=== PATIENT | male | born 1980 | race Caucasian/White ===

== ENCOUNTER 2017-12-04 17:02 | Inpatient (IN) | payer BC, OTHER ==
[~2017-12-04] VITALS: Ht 182.9 cm; Wt 81.7 kg
[2017-12-04] MEDS ORDERED: CYCL10TA6 PO (17:15)
[2017-12-04] MEDS ORDERED: HYDR-5688 PO (17:15)
[2017-12-04] MEDS ORDERED: ONDANSETRON INJ 2 MG/ML 2 ML VIAL IV STA (17:25)
[2017-12-04] MEDS ORDERED: MoRPHine SULFATE 10 MG/ML CARP/VIAL IV STA ×2 (17:25→19:11)
[2017-12-04] MEDS ORDERED: SODIUM CHLORIDE 0.9% 1000ML 1,000 ML IV ONE (17:30)
[2017-12-04] MEDS ORDERED: DEXAMETHASONE INJ 10 MG in SYRINGE 0 ML IV ONE (17:30)
[2017-12-04] MEDS ORDERED: DEXAMETHASONE **PF** INJ 10 MG/ML VIAL ONE (17:50)
--- NOTE | 2017-12-04 20:54 | History and Physical ---
History & Physical Date & Time of Service: Dec 04, 2017 at 20:54 Chief Complaint: Sciatica, Low Back & Leg Pain Primary Care Physician: Parminder Florian M.D. History of Present Illness Source: patient 37 Yo M with medical hx of DJD of Lumber spine presented to ER with acute left sided low back pain with left sided sciatica pain /numbness radiation to left foot . pt has chronic ( > 6 months) hx of persistent left lower lumber /buttock region pain with radiation to post thigh and calf . No hx of prior trauma or other initiating event MRI of lumber spine on May 2017 : showed disc herniation on left L5- S1 with clear contact with traversing S1 root , there may be a small annular tear at L4-L5 pt was seen by Orthopedics Dr Echevarria ,was recommended to have conservative management with pain control , PT/OT evaluated by Pain Management Dr Teixeira on 12/03/2017-pt had limited improvement of his symptom with trial of NSAID's , muscle relaxant and Prednisone taper schedule for Left S1 transforaminal epidural steroid injection in next week Pt developed worsening of back pain after shoveling snow on Friday12/03/17 , pain was intractable , excruciating , had difficulty in supine position left leg felt numb and weak , reports of hesitancy in urination , no saddle anesthesia pt called Dr Teixeira office for advice , was asked to come to ER for eval at [facility] ER , pt continued to have sever constant low back pain , MRI of lumber spine ordered by ER physician pt was unable to lie flat for MRI scan no report of fever or chills, no cough or congestion , no body ache denies urine or bowel incontinence Social History Smoking Status: Never Smoker Multi-Drug Resistant Organisms History of MDRO: No Allergies Uncoded Allergies: NKDA (Allergy, Unknown, NONE, 01/15/10) Home Medications Scheduled PRN Cyclobenzaprine Hcl (Flexeril), 10 MG PO TID PRN for Muscle Spasms Hydrocodone/Acetaminophen 5MG/325MG (Fithian 5MG/325MG), 1 TABLET PO Q6H PRN for Pain Review of Systems Constitutional: + weakness ENT: No hearing loss, No unusual epistaxis, No nasal symptoms, No sore throat, No tinnitus, No dental problems, No trouble swallowing, No problem reported Respiratory: No cough, No sputum, No wheezing, No shortness of breath, No dyspnea on exertion, No dyspnea at rest, No hemoptysis, No problem reported Cardiovascular: No chest pain, No orthopnea, No PND, No edema, No claudication , No palpitations, No problem reported Musculoskeletal: + muscle pain (left post thigh radiatin pain form low back and left buttock area ), + calf pain (left sided pain ), + problem reported ( severe low back pain with radiation to left leg and foot ) Neurologic: + weakness (on left leg ), + numbness/tingling (left leg ), + balance problems (unable to bear wt on left lower ext ) Physical Exam Vital Signs Date Time Temp Pulse Resp B/P (MAP) Pulse Ox O2 Delivery O2 Flow Rate FiO2 12/04/17 20:07 60 15 108/61 94 Room Air 12/04/17 17:04 36.6 105 17 133/90 99 Room Air General Appearance: + moderate distress (due to back pain , remains in rt lateral decub position , unable to lie flat or change position due to back pain and sciatica ) Head: normocephalic, atraumatic Eyes: normal inspection, sclerae normal ENT: normal ENT inspection, hearing grossly normal Neck: thyroid normal, no carotid bruits, trachea midline Respiratory/Chest: chest non-tender, lungs clear, normal breath sounds Cardiovascular: regular rate, rhythm, no edema, no JVD, no murmur, normal peripheral pulses Abdomen/GI: normal bowel sounds, non tender, soft Back: + pertinent finding (+ point tendernss on low back /left lower hip/ buttock area /left post thigh /calf to left side of foot ) Extremities/Musculoskelatal: + calf tenderness (left side calf tenderness ), + pertinent finding (+ point tendernss on low back / with radiation pain to left lower hip/buttock area /left post thigh /calf to left side of foot ) Neurologic/Psych: alert, oriented x 3, + motor weakness (rt sided normal strength , left sided diminished strength due to pain ), + sensory deficit ( left side post thigh /buttock /calf and foot area numbness ) Impression Assessment and Plan INTRACTABLE BACK PAIN : hx of DJD of Lumber spine MRI of lumber spine without contrast on 05/27/2017 : Degenerative disc disease noted at L4-L5/L5-S1 with loss of disc height and disc desiccation Left paracentral disc herniation at L5-S1 fully effaces the exiting left sided nerve roots , including the left S1 Nv root and fully effaced the left lateral recess and descending left sided nerve root pt been followed with Pain Management as out pt and was scheduled for epidural steroid injection in next week presents with worsening /debilitating pain after shoveling snow unable to tolerate lying position to have MRI done in ER Ortho Dr Echevarria consulted ordered for Iv Decadron, pain control with PRN Toradol/IV Dilaudid for severe intractable pain pain management consult ordered for MRI of Lumber spine with contrast in AM FULL CODE DVT PROPHYLAXIS: Scd and teds ambulate avoid pharmacological anticoagulation as pt may need spinal /epidural injection for pain relief DISPOSITION : expected to be discharged home when medically stable PT/OT eval requested medicine follow up with Dr Florian Level of Care Med/Surg Resuscitation Status FULL RESUSCITATION VTE Prophylaxis Given or contraindicated: Nona Stockings, SCD's Additional Copies To Parminder Florian M.D.
[2017-12-04] MEDS ORDERED: MAGNESIUM HYDROXIDE SUSP 30 ML UDC PO PRN (21:00)
[2017-12-04] MEDS ORDERED: ONDANSETRON INJ 2 MG/ML 2 ML VIAL IV PRN (21:00)
[2017-12-04] MEDS ORDERED: ALUMINUM/MAGNESIUM/SIMETH (MAALOX MAX) 30 ML UDC PO PRN (21:00)
[2017-12-04] MEDS ORDERED: ACETAMINOPHEN 325 MG TAB PO PRN (21:00)
[2017-12-04] MEDS ORDERED: ZOLPIDEM TARTRATE 5 MG TAB PO PRN (21:00)
[2017-12-04] MEDS ORDERED: POLYETHYLENE (MIRALAX) 17 GM PACK PO PRN (21:00)
[2017-12-04] MEDS ORDERED: HYDROmorphone INJ 1 MG/ML SYR IV PRN (21:00)
[2017-12-04 21:12] LABS: HEMATOCRIT 43.1 % (42-52); MEAN CELL VOLUME 84.2 fL (80-100); MEAN CORPUSCULAR HEMOGLOBIN 29.3 pg (25-34); MEAN CORPUSCULAR HGB CONC 34.8 g/dl (32-36); MEAN PLATELET VOLUME 10.5 fL (7.4-10.4); PLATELET COUNT 257 K/uL (130-400); RED CELL DISTRIBUTION WIDTH SD 36.7 fL (36.4-46.3); WHITE BLOOD COUNT 8.18 K/uL (4.8-10.8)
[2017-12-04 21:18] LABS: CREATININE 1.05 mg/dl (0.60-1.40)
[2017-12-04 21:19] LABS: POTASSIUM 3.5 mmol/L (3.5-5.1)
--- NOTE | 2017-12-04 21:27 | EMERGENCY ROOM VISIT NOTE ---
ED Visit Note First contact with patient: 17:09 Chief Complaint: Lower back pain. History of Present Illness: Mr. Knight is a 37-year-old white male who ambulates into the ED complaining of lumbar back pain. Historically patient reports she has a herniated disc at the L5-S1 area and has a history of sciatica. He was seen by Dr. Echevarria in May 2017 and it was felt that surgery was not required. He does report he did a course of physical therapy and was feeling better. Patient reports over the last 3 weeks he has noted gradually increasing pain in the lumbar spine in the area of L4 through S1. He reports with all the shoveling he did over the last week his pain has dramatically increased in intensity. Currently he describes his pain as a sharp stabbing sensation. He rates his discomfort 9/10. The pain is radiating down the left leg to the foot. His pain worsens with all movement of the back, lying on his back, sitting, ambulating. He reports he has been using [id number] medications without relief of his discomfort. He does find it easier to kneel on the floor to control his pain. He has contacted pain management who reported they could possibly do an injection in his lumbar spine in approximately 1-1/2 weeks. Associated with his worsening pain he reports he has noticed that he has a difficulty starting his urinary stream, he is having numbness in the left lower leg, weakness in the left lower leg. Additionally he notes he has been not eating or drinking because he does not want to stand to urinate and he does not want to sit to defecate. He denies fevers, chills, sweats, skin eruptions, skin color changes, recent direct or repetitive trauma, abdominal pain, nausea, vomiting, diarrhea, constipation, rectal bleeding, black/tarry stools, urinary burning, increased urinary frequency, bowel and bladder dysfunction, genital paresthesias. Review of Systems: As noted above in history of present illness. All body systems were reviewed and found to be negative as noted above. Past Medical History: As previously noted. Current Medications: Patient denies. Allergies to Medications: Patient denies. Social History: Patient is currently employed; he feels safe in his home environment; he denies tobacco and alcohol use. Physical Examination: Vital Signs: Date Time Temp Pulse Resp B/P (MAP) Pulse Ox O2 Delivery O2 Flow Rate FiO2 2/8/18 20:07 60 15 108/61 94 Room Air 12/04/17 17:04 36.6 105 17 133/90 99 Room Air GENERAL: 37-year-old male in moderate distress due to pain, nontoxic-appearing, afebrile and hemodynamically stable. On my initial evaluation I did walk into the patient's room and he was kneeling at the bedside. NEUROLOGICAL: Awake, alert and oriented to person, place and time. Answering questions appropriately and following commands. Good hand eye coordination. SKIN: Warm, dry and pink. No soft tissue eruptions or trauma noted. HEENT: Atraumatic and normocephalic. BACK: No tenderness over the bony cervical and thoracic spine. Mild tenderness over the lower lumbar spine without bony deformity, bony crepitus, swelling or ecchymosis. Positive straight leg raise on the left. No CVA tenderness. THORAX: Lungs sounds are clear to auscultation and equal bilaterally with symmetrical chest wall. ABDOMEN: Flat, soft and nontender. Positive bowel sounds in all quadrants. No guarding, rigidity or organomegaly. LOWER EXTREMITIES: No tenderness over the hips, thighs, knees, lower leg or ankle. +2 right sided patellar and Achilles deep tendon reflexes and slightly decreased on the left. Difficulty to assess muscle strength due to pain but with knee flexion and extension and ankle plantar flexion and dorsiflexion his strength was decreased on the left. He was able to distinguish light sensations to all dermatomes of the leg but reported the left lower extremity light sensation test felt different and distance. Distal pulses are intact and equal bilaterally. Capillary refill is brisk and intact bilaterally. No calf tenderness or cords. ED Course: Patient is assessed as noted above. Patient's medication list was reviewed. An IV lock was initiated and patient was hydrated with normal saline and received a total of 12 mg of morphine and 10 mg of Decadron IV. Patient was taken to the MRI suite and was not able to tolerate lying flat for his MRI and return. Patient's case was reviewed with Dr. Andrews; we agreed on diagnostic approach, treatment, disposition and plan. Patient's case was consulted with Dr. Echevarria; he felt it was appropriate to have the patient be admitted for observation by the hospitalist for pain control and also recommended additional steroids for possible MRI and his evaluation tomorrow. Patient's case was consulted with case management [facility]/admission for intractable back pain and pain control. Patient was educated about today's findings. Clinical Impression: Irretractable lumbar back pain. Left-sided radicular symptoms. Disposition and Plan: Patient be brought into the hospital for observation/ [facility]; please see their notes and orders for final disposition and plan.
[2017-12-04] MEDS ORDERED: IV FLUIDS COMPLETED PRN (21:30)
[2017-12-04 21:40] VITALS: BP 111/70; PULSE 54; TEMP 36.8; Ht 182.9 cm; Wt 81.7 kg
[2017-12-04] MEDS: HYDROmorphone INJ 2 MG/ML SYR/VIAL IV PRN (22:08)
[2017-12-04 23:00] VITALS: BP 106/65; PULSE 59; TEMP 36.8; O2SAT 90
[2017-12-04] MEDS: CYCLOBENZAPRINE HCL 5 MG TAB PO SCH (23:39)
[2017-12-04] MEDS: LIDODERM (LIDOCAINE) PATCH 5% TD SCH (23:39)
[2017-12-04] MEDS: DOCUSATE SODIUM 100 MG CAP PO SCH (23:39)
[2017-12-04] MEDS: DEXAMETHASONE INJ 10 MG in SYRINGE 0 ML IV SCH (23:46)
[2017-12-04] MEDS: KETOROLAC TROMETHAMINE 15 MG/ML VIAL IV PRN (23:46)
[2017-12-05] MEDS: HYDROmorphone INJ 2 MG/ML SYR/VIAL IV PRN ×2 (05:54→12:45)
[2017-12-05 07:32] VITALS: BP 101/56; PULSE 60; TEMP 36.7; O2SAT 96
[2017-12-05] MEDS: DOCUSATE SODIUM 100 MG CAP PO SCH ×2 (07:55→20:20)
[2017-12-05] MEDS: DEXAMETHASONE INJ 10 MG in SYRINGE 0 ML IV SCH ×2 (07:59→16:43)
[2017-12-05] MEDS: CYCLOBENZAPRINE HCL 5 MG TAB PO SCH ×3 (07:59→20:20)
[2017-12-05] MEDS: KETOROLAC TROMETHAMINE 15 MG/ML VIAL IV PRN ×2 (08:00→16:45)
[2017-12-05] MEDS: LIDODERM (LIDOCAINE) PATCH 5% TD SCH (08:00)
[2017-12-05 09:20] LABS: HEMOGLOBIN 14.1 g/dL (14.0-18.0); MEAN CELL VOLUME 84.9 fL (80-100); MEAN CORPUSCULAR HEMOGLOBIN 29.2 pg (25-34); MEAN CORPUSCULAR HGB CONC 34.4 g/dl (32-36); MEAN PLATELET VOLUME 10.5 fL (7.4-10.4); PLATELET COUNT 231 K/uL (130-400); WHITE BLOOD COUNT 8.67 K/uL (4.8-10.8)
[2017-12-05 09:26] LABS: INR 1.1 (0.9-1.1)
[2017-12-05 09:43] LABS: CALCIUM 9.1 mg/dl (8.5-10.1); CREATININE 0.91 mg/dl (0.60-1.40); POTASSIUM 4.4 mmol/L (3.5-5.1)
--- NOTE | 2017-12-05 13:43 | DIAGNOSTIC IMAGING REPORT ---
LUMBAR SPINE W/O CONTRAST CLINICAL HISTORY: 37 years-old Male with back pain /Radiculopathy /DJD at L4-L5/5-S1 . Acute severe low back pain with radicular symptoms. COMPARISON: None. TECHNIQUE: Multiplanar, multi sequence MRI of the lumbar spine was performed without intravenous contrast. FINDINGS: No focal bone marrow edema, acute fracture or subluxation. Paraspinal structures, intra-abdominal and intrapelvic structures appear unremarkable. No aortic aneurysm or adenopathy identified. Conus medullaris terminates at the L1 level. Signal within the imaged thoracic spinal cord appears unremarkable. Small 1 x 1 mm lipoma of the filum terminale (image 13 series 7). T12-L1: No central canal or neural foraminal stenosis. L1-L2: No central canal or neural foraminal stenosis. L2-L3: No central canal or neural foraminal stenosis. L3-L4: No central canal or neural foraminal stenosis. L4-L5: Mild intervertebral disc space narrowing with disc desiccation and small annular disc bulge. Additionally, there is a small posterior annular fissure with broad-based central disc protrusion which flattens the ventral thecal sac. No significant central canal or foraminal narrowing. L5-S1: Mild intervertebral disc space narrowing with small posterior disc bulge and left paracentral disc extrusion which extends posteriorly 10 mm. Additionally, there is a 7 x 10 mm sequestered disc fragment posteriorly to the extrusion as seen on image 7 series 3, not as well delineated on the axial images. The sequestered disc fragment obliterates the central canal causing severe central canal narrowing with displacement of the cauda equina to the right. Additionally, there is severe left lateral recess, mild to moderate left and mild right foraminal narrowing. This likely abuts and displaces the left S1 nerve root. IMPRESSION: 1. At L5-S1 mild intervertebral disc space narrowing with small posterior disc bulge and left paracentral disc extrusion is present in addition to an adjacent 10 mm sequestered disc fragment which causes severe central canal narrowing with rightward displacement of the cauda equina resulting in severe left lateral recess, mild to moderate left and mild right foraminal narrowing. 2. Mild intervertebral disc space narrowing with disc desiccation and small annular disc bulge at L4-L5 with small posterior annular fissure and broad-based central disc protrusion. No associated significant central canal or foraminal narrowing at this interspace. 3. 1 mm lipoma of the filum terminalis. The above report was generated using voice recognition software. It may contain grammatical, syntax or spelling errors. Electronically signed by: Bharat Kumar M.D. 12/05/2017 1:41 PM Dictated Date/Time: 12/05/2017 1:23 PM
--- NOTE | 2017-12-05 13:47 | ORTHOPEDIC CONSULTATION ---
DATE OF CONSULTATION: 12/05/2017 CHIEF COMPLAINT: Back and lower extremity difficulty with a working diagnosis of a disk herniation at L5-S1 from 3 months ago. Yifan was doing fairly well, increasing activity, was doing pretty well with conservative management. He was shoveling snow a few days ago. The pain begun excruciating. He came to the Emergency Room for evaluation and treatment with reported numbness and weakness with some hesitancy in urine. PAST MEDICAL HISTORY: Benign. SOCIAL HISTORY: Nonsmoker. Non-ETOH user. ALLERGIES: None. MEDICATIONS: Flexeril and hydrocodone. REVIEW OF SYSTEMS: Denies any blurred vision, double vision, tinnitus or vertigo. Denies shortness of breath or chest pain. Admits to back pain, buttock pain, lower extremity difficulty, and calf difficulty. Admits to some numbness and tingling, weakness and balance issues. PHYSICAL EXAMINATION: GENERAL: He is an alert and oriented gentleman. Communicates perfectly. VITAL SIGNS: Blood pressure is controlled at 130/90, respiratory rate 15, and pulse 60. HEENT: Normal. CHEST: Nontender. LUNGS: Clear. ABDOMEN: Soft and nontender. CARDIAC: Normal rate rhythm. BACK: His back has some point tenderness, pain with percussion and left calf pain. He has positive pain with straight leg raising on the left hand side and slightly on the right hand side. Slightly decreased strength on the left and slightly decreased sensory deficits. Old MRI scan reviewed, demonstrating disk herniation at L5-S1. IMPRESSION: Disk herniation at L5-S1 lumbar spine with mild neurological issues. DISPOSITION: He is being admitted to the medical service. I am thankful. He is a full code status. We will try to manage him medically with assortment of medications, steroids, opioids and try to get this under control. There is an outside chance for surgical intervention. He would like to avoid surgical intervention if at all possible.
[2017-12-05] MEDS: GABAPENTIN 300 MG CAP PO SCH ×2 (14:07→20:21)
--- NOTE | 2017-12-05 14:39 | Progress Note ---
Internal Med Progress Note Date of Service: Dec 05, 2017. Provider Documentation: SUBJECTIVE: The patient was seen and examined Has Low Back pain with left leg Radiculopathy-worse symptoms since Friday OBJECTIVE: Vital Signs-as noted below Exam: General-Moderate distress at rest Eyes-normal ENT-normal Neck-supple Lungs-clear to auscultate bilaterally Heart-Regular,no murmur Abdomen-Benign,no masses,bowel sound present Extremities-No edema Neuro-AAOx3 Lab data as noted below. ASSESSMENT & PLAN: INTRACTABLE BACK PAIN : H/O of DJD of Lumber spine Pt been followed with Pain Management as out pt and was scheduled for epidural steroid injection in next week Presents with worsening /debilitating pain after shoveling snow Has been Iv Decadron, pain control with PRN Toradol/IV Dilaudid for severe intractable pain Pain management consult Clinically not any better MRI of lumber spine without contrast on 05/27/2017 : Degenerative disc disease noted at L4-L5/L5-S1 with loss of disc height and disc desiccation Left paracentral disc herniation at L5-S1 fully effaces the exiting left sided nerve roots , including the left S1 Nv root and fully effaced the left lateral recess and descending left sided nerve root MRI on 12/05/17::IMPRESSION: 1. At L5-S1 mild intervertebral disc space narrowing with small posterior disc bulge and left paracentral disc extrusion is present in addition to an adjacent 10 mm sequestered disc fragment which causes severe central canal narrowing with rightward displacement of the cauda equina resulting in severe left lateral recess, mild to moderate left and mild right foraminal narrowing. 2. Mild intervertebral disc space narrowing with disc desiccation and small annular disc bulge at L4-L5 with small posterior annular fissure and broad-based central disc protrusion. No associated significant central canal or foraminal narrowing at this interspace. 3. 1 mm lipoma of the filum terminalis. Appreciate Ortho evaluation Further management as per Ortho DVT PROPHYLAXIS: Scd and teds ambulate avoid pharmacological anticoagulation as pt may need spinal /epidural injection for pain relief FULL CODE DISPOSITION : expected to be discharged home when medically stable PT/OT eval requested medicine follow up with Dr Florian [] Vital Signs: Date Time Temp Pulse Resp B/P (MAP) Pulse Ox O2 Delivery O2 Flow Rate FiO2 12/05/17 08:00 Room Air 12/05/17 07:32 36.7 60 16 101/56 (71) 96 Room Air 12/04/17 23:40 Room Air 12/04/17 23:00 36.8 59 14 106/65 (79) 90 Room Air 12/04/17 21:40 36.8 54 16 111/70 Room Air 12/04/17 21:31 82 16 97/58 97 12/04/17 20:07 60 15 108/61 94 Room Air 12/04/17 17:04 36.6 105 17 133/90 99 Room Air Lab Results: Results Past 24 Hours Test 12/04/17 17:30 12/05/17 08:25 Range/Units White Blood Count 8.18 8.67 4.8-10.8 K/uL Red Blood Count 5.12 4.83 4.7-6.1 M/uL Hemoglobin 15.0 14.1 14.0-18.0 g/dL Hematocrit 43.1 41.0 42-52 % Mean Corpuscular Volume 84.2 84.9 80-100 fL Mean Corpuscular Hemoglobin 29.3 29.2 25-34 pg Mean Corpuscular Hemoglobin Concent 34.8 34.4 32-36 g/dl RDW Standard Deviation 36.7 37.0 36.4-46.3 fL RDW Coefficient of Variation 12.0 12.0 11.5-14.5 % Platelet Count 257 231 130-400 K/uL Mean Platelet Volume 10.5 10.5 7.4-10.4 fL Sodium Level 139 137 136-145 mmol/L Potassium Level 3.5 4.4 3.5-5.1 mmol/L Chloride Level 106 104 98-107 mmol/L Carbon Dioxide Level 30 27 21-32 mmol/L Anion Gap 3.0 6.0 3-11 mmol/L Blood Urea Nitrogen 13 16 7-18 mg/dl Creatinine 1.05 0.91 0.60-1.40 mg/dl Est Creatinine Clear Calc Drug Dose 107.8 124.4 ml/min Estimated GFR () 106.1 126.1 Estimated GFR (Non- 91.5 108.8 BUN/Creatinine Ratio 11.9 18.0 10-20 Random Glucose 105 143 70-99 mg/dl Calcium Level 9.0 9.1 8.5-10.1 mg/dl Erythrocyte Sedimentation Rate 2 0-14 mm/hr Prothrombin Time 11.3 9.0-12.0 SECONDS Prothromb Time International Ratio 1.1 0.9-1.1
[2017-12-05 15:13] VITALS: BP 110/63; PULSE 60; TEMP 36.8; O2SAT 95
--- NOTE | 2017-12-05 19:38 | HISTORY & PHYSICAL EXAMINATION ---
DATE OF ADMISSION: 12/04/2017 WORKING DIAGNOSIS: Disc herniation, lumbar spine L5-S1. HISTORY OF PRESENT ILLNESS: Yifan is a delightful gentleman. He is only 37 years of age. He was admitted yesterday with back and lower extremity difficulty. He was rescanned today. He has a large disk herniation at L5-S1 slightly on the left hand side. He has no fever, sweats, chills. He has hesitancy of his urine. He has been slightly constipated but he has no incontinence of bowel or bladder function. It is mostly in his lower extremity and back radiating into left hand side. He has 5/5 motor strength to dorsiflexion, plantarflexion, slight loss of sensation, pain with straight leg raising on the left contralateral also on the right. Images demonstrated a very large disc herniation at L5-S1 lumbar spine. IMPRESSION: Includes that of a large disc herniation at L5-S1 lumbar spine, otherwise healthy 37-year-old gentleman. DISPOSITION: I think it is appropriate that he stays approximately 24-48 hours. I think it is little unsafe for him to go home. I would like to have his pain little more under control and improvement of his sensation. He may have a chance of going home on Friday. After saying this, there is a chance of surgical intervention if he does not turnaround still has difficulty, then surgery would be warranted, a single level discectomy L5-S1. He has been admitted to the medical service and the medical team will be in charge of his overall disposition but once again I recommend him staying tomorrow which will be Friday the and even most of the day on the . Dr. Marc Tang will be covering in my absence and I will be back into town Friday evening approximately 6:00 p.m. If there is any concerning issues in the next 48 hours, please give me a call [phone].
[2017-12-05 23:15] VITALS: BP 114/67; PULSE 68; TEMP 36.8; O2SAT 94
[2017-12-06] MEDS: DEXAMETHASONE INJ 10 MG in SYRINGE 0 ML IV SCH ×4 (00:25→23:42)
[2017-12-06] MEDS: KETOROLAC TROMETHAMINE 15 MG/ML VIAL IV PRN ×4 (04:09→22:43)
[2017-12-06 07:20] VITALS: BP 97/58; PULSE 64; TEMP 36.9; O2SAT 97
[2017-12-06] MEDS: CYCLOBENZAPRINE HCL 5 MG TAB PO SCH ×3 (08:54→21:18)
[2017-12-06] MEDS: GABAPENTIN 300 MG CAP PO SCH ×3 (08:54→21:45)
[2017-12-06] MEDS: DOCUSATE SODIUM 100 MG CAP PO SCH ×2 (08:54→21:44)
[2017-12-06] MEDS: LIDODERM (LIDOCAINE) PATCH 5% TD SCH (08:55)
--- NOTE | 2017-12-06 10:25 | PROGRESS NOTE ---
DATE: 12/06/2017 CHIEF COMPLAINT: L5-S1 disc herniation. PROGRESS: Overall, Yifan is doing better. He still has some numbness in his right leg. His pain is much better and he has been up and ambulating, but he is not symptom free at this point. PHYSICAL EXAMINATION: He has active dorsiflexion and plantarflexion of his ankles and slightly decreased strength on the left side. He does have some numbness extending in the left foot and the left calf. Overall he has been up and ambulating. IMPRESSION: L5-S1 disc herniation. PLAN: We will continue to try to treat this conservatively. He is currently on steroids and opioid and his pain is much better controlled. He is orthopedically stable for discharge to home when medically ready.
--- NOTE | 2017-12-06 13:43 | Progress Note ---
Internal Med Progress Note Date of Service: Dec 06, 2017. Provider Documentation: SUBJECTIVE: The patient was seen and examined Has Low Back pain with left leg Radiculopathy-worse symptoms since Friday Pain is reasonably controlled Ambulating with some difficulty OBJECTIVE: Vital Signs-as noted below Exam: General-Moderate distress at rest Eyes-normal ENT-normal Neck-supple Lungs-clear to auscultate bilaterally Heart-Regular,no murmur Abdomen-Benign,no masses,bowel sound present Extremities-No edema Neuro-AAOx3 no sensory and or motor deficit in left leg Straight leg raising produces radiating pain along the leg Lab data as noted below. ASSESSMENT & PLAN: INTRACTABLE BACK PAIN : HNP L5/S1 H/O of DJD of Lumber spine Pt been followed with Pain Management as out pt and was scheduled for epidural steroid injection in next week Presents with worsening /debilitating pain after shoveling snow Has been Iv Decadron, pain control with PRN Toradol/IV Dilaudid for severe intractable pain Pain management consult Clinically not any better MRI of lumber spine without contrast on 05/27/2017 : Degenerative disc disease noted at L4-L5/L5-S1 with loss of disc height and disc desiccation Left paracentral disc herniation at L5-S1 fully effaces the exiting left sided nerve roots , including the left S1 Nv root and fully effaced the left lateral recess and descending left sided nerve root MRI on 12/05/17::IMPRESSION: 1. At L5-S1 mild intervertebral disc space narrowing with small posterior disc bulge and left paracentral disc extrusion is present in addition to an adjacent 10 mm sequestered disc fragment which causes severe central canal narrowing with rightward displacement of the cauda equina resulting in severe left lateral recess, mild to moderate left and mild right foraminal narrowing. 2. Mild intervertebral disc space narrowing with disc desiccation and small annular disc bulge at L4-L5 with small posterior annular fissure and broad-based central disc protrusion. No associated significant central canal or foraminal narrowing at this interspace. 3. 1 mm lipoma of the filum terminalis. Appreciate Ortho evaluation Further management as per Ortho Medical management for now Patient wants a second opinion Will talk to Dr Joseph if condition gets worse otherwise discharge home tomorrow DVT PROPHYLAXIS: Scd and teds ambulate avoid pharmacological anticoagulation as pt may need spinal /epidural injection for pain relief FULL CODE DISPOSITION : expected to be discharged home when medically stable PT/OT eval requested medicine follow up with Dr Florian [] Vital Signs: Date Time Temp Pulse Resp B/P (MAP) Pulse Ox O2 Delivery O2 Flow Rate FiO2 12/06/17 08:52 Room Air 12/06/17 07:20 36.9 64 16 97/58 (71) 97 Room Air 12/06/17 00:20 Room Air 12/05/17 23:15 36.8 68 16 114/67 (83) 94 Room Air 12/05/17 16:45 Room Air 12/05/17 15:13 36.8 60 16 110/63 (79) 95 Room Air 60
[2017-12-06 15:19] VITALS: BP 125/64; PULSE 91; TEMP 37; O2SAT 93
[2017-12-06 22:51] VITALS: BP 96/53; PULSE 60; TEMP 36.8; O2SAT 93
[2017-12-07] MEDS: KETOROLAC TROMETHAMINE 15 MG/ML VIAL IV PRN ×3 (05:49→19:42)
[2017-12-07 07:16] VITALS: BP 124/70; PULSE 65; TEMP 36.8; O2SAT 97
[2017-12-07] MEDS: DEXAMETHASONE INJ 10 MG in SYRINGE 0 ML IV SCH ×2 (07:35→15:44)
[2017-12-07] MEDS: DOCUSATE SODIUM 100 MG CAP PO SCH ×2 (07:35→21:09)
[2017-12-07] MEDS: CYCLOBENZAPRINE HCL 5 MG TAB PO SCH ×3 (07:36→21:09)
[2017-12-07] MEDS: GABAPENTIN 300 MG CAP PO SCH ×3 (07:36→21:09)
[2017-12-07] MEDS: LIDODERM (LIDOCAINE) PATCH 5% TD SCH (07:36)
[2017-12-07] MEDS ORDERED: MAGNESIUM HYDROXIDE SUSP 30 ML UDC PO ONE (08:15)
[2017-12-07] MEDS: POLYETHYLENE (MIRALAX) 17 GM PACK PO SCH ×3 (10:19→21:09)
--- NOTE | 2017-12-07 10:33 | Progress Note ---
Internal Med Progress Note Date of Service: Dec 07, 2017. Provider Documentation: SUBJECTIVE: The patient was seen and examined Has Low Back pain with left leg Radiculopathy-worse symptoms since Friday Pain is reasonably controlled at rest Severe radiculopathy on ambulation Denies any Urine and or bowel issue but constipated OBJECTIVE: Vital Signs-as noted below Exam: General-Moderate distress at rest Eyes-normal ENT-normal Neck-supple Lungs-clear to auscultate bilaterally Heart-Regular,no murmur Abdomen-Benign,no masses,bowel sound present Extremities-No edema Neuro-AAOx3 no sensory and or motor deficit in left leg Straight leg raising produces radiating pain along the leg Lab data as noted below. ASSESSMENT & PLAN: INTRACTABLE BACK PAIN : HNP L5/S1 H/O of DJD of Lumber spine Pt been followed with Pain Management as out pt and was scheduled for epidural steroid injection in next week Presents with worsening /debilitating pain after shoveling snow Has been Iv Decadron, pain control with PRN Toradol/IV Dilaudid for severe intractable pain Pain management consult Clinically not any better MRI of lumber spine without contrast on 05/27/2017 : Degenerative disc disease noted at L4-L5/L5-S1 with loss of disc height and disc desiccation Left paracentral disc herniation at L5-S1 fully effaces the exiting left sided nerve roots , including the left S1 Nv root and fully effaced the left lateral recess and descending left sided nerve root MRI on 12/05/17::IMPRESSION: 1. At L5-S1 mild intervertebral disc space narrowing with small posterior disc bulge and left paracentral disc extrusion is present in addition to an adjacent 10 mm sequestered disc fragment which causes severe central canal narrowing with rightward displacement of the cauda equina resulting in severe left lateral recess, mild to moderate left and mild right foraminal narrowing. 2. Mild intervertebral disc space narrowing with disc desiccation and small annular disc bulge at L4-L5 with small posterior annular fissure and broad-based central disc protrusion. No associated significant central canal or foraminal narrowing at this interspace. 3. 1 mm lipoma of the filum terminalis. Appreciate Ortho evaluation Further management as per Ortho Medical management for now Patient wants a second opinion Pain is worse on ambulation with Radiculopathy Discussed with Dr Echevarria-no problem getting 2nd Opinion Consult placed for Dr Joseph DVT PROPHYLAXIS: Scd and teds ambulate avoid pharmacological anticoagulation as pt may need spinal /epidural injection for pain relief FULL CODE DISPOSITION : expected to be discharged home when medically stable PT/OT eval requested medicine follow up with Dr Florian [] Vital Signs: Date Time Temp Pulse Resp B/P (MAP) Pulse Ox O2 Delivery O2 Flow Rate FiO2 12/07/17 07:16 36.8 65 16 124/70 (88) 97 Room Air 12/06/17 23:40 Room Air 12/06/17 22:51 36.8 60 17 96/53 (67) 93 Room Air 12/06/17 15:30 Room Air 12/06/17 15:19 37.0 91 18 125/64 (84) 93 Room Air
[2017-12-07] MEDS ORDERED: POLYETHYLENE (MIRALAX) 17 GM PACK ONE (14:00)
[2017-12-07 15:11] VITALS: BP 115/68; PULSE 76; TEMP 36.9; O2SAT 96
--- NOTE | 2017-12-07 19:12 | ORTHOPEDICS PROGRESS NOTE ---
DATE: 12/07/2017 SUBJECTIVE: His pain does seem controlled. He still has some numbness and tingling. He has no significant weakness. He is able to walk a little bit in the hallway. If he stands on his feet for a significant amount of time or even a few minutes he has fairly riveting lower extremity difficulty and must get off his feet. This causes him some significant pain and some increased numbness. He does not have bowel and bladder complaints and he is resting comfortably in his room. He denies fever, sweats, chills, any other worrisome red flags. OBJECTIVE: His abdomen is soft, nontender, no referred pain. He has adequate motor strength to dorsiflexion, plantar flexion. His plantar flexion was intact. His reflex left Achilles was decreased compared to the right. It was not completely absent but significantly decreased. He had good great toe strength. He had no upper motor neuron issues. He has pain with straight leg raising on the left and contralateral straight leg raising pain. He has no noticeable muscle atrophy. He has loss of sensation in the S1 nerve root. IMAGES: Demonstrate a very large disc herniation at L5-S1 with nerve root compression. It is quite significant. I have seen larger disc herniation, but this would be certainly in the top 10% for this range. PLAN AND DISPOSITION: This is a surgical problem. I think in any hands, any bodies discretion, surgery is probably the best answer. My opinion on this comes down to surgery is probably a better option than living with this situation and risking any permanent neurological deficit. I have a very busy schedule tomorrow which is Friday the . Hopefully, we get him home, keep him on some steroids and some medication and schedule his surgery for later on this week or early next week. I would like to get to his surgical procedure within the next 4-8 days.
[2017-12-07 23:09] VITALS: BP 140/78; PULSE 51; TEMP 36.7; O2SAT 95
[2017-12-08] MEDS: DEXAMETHASONE INJ 10 MG in SYRINGE 0 ML IV SCH ×4 (00:12→23:43)
[2017-12-08] MEDS: POLYETHYLENE (MIRALAX) 17 GM PACK PO SCH ×4 (00:40→20:56)
[2017-12-08] MEDS: KETOROLAC TROMETHAMINE 15 MG/ML VIAL IV PRN ×3 (03:08→23:43)
[2017-12-08 07:15] VITALS: BP 134/79; PULSE 51; TEMP 36.8; O2SAT 95
[2017-12-08 08:00] VITALS: O2SAT 95
[2017-12-08] MEDS: LIDODERM (LIDOCAINE) PATCH 5% TD SCH (08:40)
[2017-12-08] MEDS: GABAPENTIN 300 MG CAP PO SCH ×3 (08:40→20:57)
[2017-12-08] MEDS: DOCUSATE SODIUM 100 MG CAP PO SCH ×2 (08:40→20:57)
[2017-12-08] MEDS: CYCLOBENZAPRINE HCL 5 MG TAB PO SCH ×3 (08:40→20:57)
[2017-12-08 15:35] VITALS: BP 130/78; PULSE 67; TEMP 36.8; O2SAT 94
--- NOTE | 2017-12-08 16:04 | Progress Note ---
Internal Med Progress Note Date of Service: Dec 08, 2017. Provider Documentation: SUBJECTIVE: The patient was seen and examined Has Low Back pain with left leg Radiculopathy-worse symptoms since Friday Severe radiculopathy on ambulation Denies any Urine and or bowel issue but constipated Still has the pain OBJECTIVE: Vital Signs-as noted below Exam: General-Moderate distress at rest Eyes-normal ENT-normal Neck-supple Lungs-clear to auscultate bilaterally Heart-Regular,no murmur Abdomen-Benign,no masses,bowel sound present Extremities-No edema Neuro-AAOx3 no sensory and or motor deficit in left leg Straight leg raising produces radiating pain along the leg Impaired sensation along the lateral aspect of the left foot Lab data as noted below. ASSESSMENT & PLAN: INTRACTABLE BACK PAIN : HNP L5/S1 H/O of DJD of Lumber spine Pt been followed with Pain Management as out pt and was scheduled for epidural steroid injection in next week Presents with worsening /debilitating pain after shoveling snow Has been Iv Decadron, pain control with PRN Toradol/IV Dilaudid for severe intractable pain Pain management consult Clinically not any better MRI of lumber spine without contrast on 05/27/2017 : Degenerative disc disease noted at L4-L5/L5-S1 with loss of disc height and disc desiccation Left paracentral disc herniation at L5-S1 fully effaces the exiting left sided nerve roots , including the left S1 Nv root and fully effaced the left lateral recess and descending left sided nerve root MRI on 12/05/17::IMPRESSION: 1. At L5-S1 mild intervertebral disc space narrowing with small posterior disc bulge and left paracentral disc extrusion is present in addition to an adjacent 10 mm sequestered disc fragment which causes severe central canal narrowing with rightward displacement of the cauda equina resulting in severe left lateral recess, mild to moderate left and mild right foraminal narrowing. 2. Mild intervertebral disc space narrowing with disc desiccation and small annular disc bulge at L4-L5 with small posterior annular fissure and broad-based central disc protrusion. No associated significant central canal or foraminal narrowing at this interspace. 3. 1 mm lipoma of the filum terminalis. Appreciate Ortho evaluation Further management as per Ortho Wanted to have Second Opinion-Dr Joseph is away for the rest of the week Discussed with the Patient and Dr Sefter again The patient wanted to go for surgery on by Dr Echevarria DVT PROPHYLAXIS: Scd and teds ambulate avoid pharmacological anticoagulation as pt may need spinal /epidural injection for pain relief FULL CODE DISPOSITION : expected to be discharged home when medically stable PT/OT eval requested medicine follow up with Dr Florian [] Vital Signs: Date Time Temp Pulse Resp B/P (MAP) Pulse Ox O2 Delivery O2 Flow Rate FiO2 12/08/17 15:35 36.8 67 18 130/78 (95) 94 Room Air 12/08/17 08:00 95 Room Air 12/08/17 07:15 36.8 51 16 134/79 (97) 95 Room Air 12/08/17 00:00 Room Air 12/07/17 23:09 36.7 51 16 140/78 (98) 95 Room Air
--- NOTE | 2017-12-08 17:26 | ORTHOPEDICS PROGRESS NOTE ---
DATE: 12/08/2017 SUBJECTIVE: Moderate complaints of pain, numbness, tingling, some associated weakness, worsening clinical story and scenario when he is up and ambulatory. OBJECTIVE: 5/5 strength, loss of Achilles reflex on the left. Slight loss of sensation. Pain with straight leg raising left with straight leg raising pain, right. IMAGING DATA: Demonstrates a large disk herniation at L5-S1. PLAN: We are rescheduling him for surgery, hope get to him in the next 2-3 days. He is too critical to send home. I have explained to him that situation. We will try to manage him medically over next 24-48 hours. If he makes a miraculous recovery, the cancellation of surgery is easy. The surgical procedure that will offer him is a lumbar spine laminotomy and discectomy at L5-S1 on the left.
[2017-12-08 23:04] VITALS: BP 117/69; PULSE 49; TEMP 36.5; O2SAT 96
[2017-12-08 23:45] VITALS: PULSE 56
[2017-12-09] MEDS: POLYETHYLENE (MIRALAX) 17 GM PACK PO SCH ×4 (02:38→20:10)
[2017-12-09 07:32] VITALS: BP 116/71; PULSE 49; TEMP 36.7; O2SAT 97
[2017-12-09] MEDS: DEXAMETHASONE INJ 10 MG in SYRINGE 0 ML IV SCH ×3 (08:31→23:52)
[2017-12-09] MEDS: CYCLOBENZAPRINE HCL 5 MG TAB PO SCH ×3 (08:32→20:12)
[2017-12-09] MEDS: DOCUSATE SODIUM 100 MG CAP PO SCH ×2 (08:32→20:12)
[2017-12-09] MEDS: GABAPENTIN 300 MG CAP PO SCH ×3 (08:32→20:12)
[2017-12-09] MEDS: LIDODERM (LIDOCAINE) PATCH 5% TD SCH (08:41)
[2017-12-09 15:18] VITALS: BP 135/73; PULSE 81; TEMP 36.9; O2SAT 96
--- NOTE | 2017-12-09 15:46 | Progress Note ---
Internal Med Progress Note Date of Service: Dec 09, 2017. Provider Documentation: SUBJECTIVE: The patient was seen and examined Has Low Back pain with left leg Radiculopathy-worse symptoms since Friday Severe radiculopathy on ambulation Denies any Urine and or bowel issue but constipated Still has the pain with radiation and numbness on lateral and under left foot OBJECTIVE: Vital Signs-as noted below Exam: General-Moderate distress at rest Eyes-normal ENT-normal Neck-supple Lungs-clear to auscultate bilaterally Heart-Regular,no murmur Abdomen-Benign,no masses,bowel sound present Extremities-No edema Neuro-AAOx3 no sensory and or motor deficit in left leg Straight leg raising produces radiating pain along the leg Impaired sensation along the lateral aspect of the left foot Lab data as noted below. ASSESSMENT & PLAN: INTRACTABLE BACK PAIN : HNP L5/S1 H/O of DJD of Lumber spine Pt been followed with Pain Management as out pt and was scheduled for epidural steroid injection in next week Presents with worsening /debilitating pain after shoveling snow Has been Iv Decadron, pain control with PRN Toradol/IV Dilaudid for severe intractable pain Pain management consult Clinically not any better MRI of lumber spine without contrast on 05/27/2017 : Degenerative disc disease noted at L4-L5/L5-S1 with loss of disc height and disc desiccation Left paracentral disc herniation at L5-S1 fully effaces the exiting left sided nerve roots , including the left S1 Nv root and fully effaced the left lateral recess and descending left sided nerve root MRI on 12/05/17::IMPRESSION: 1. At L5-S1 mild intervertebral disc space narrowing with small posterior disc bulge and left paracentral disc extrusion is present in addition to an adjacent 10 mm sequestered disc fragment which causes severe central canal narrowing with rightward displacement of the cauda equina resulting in severe left lateral recess, mild to moderate left and mild right foraminal narrowing. 2. Mild intervertebral disc space narrowing with disc desiccation and small annular disc bulge at L4-L5 with small posterior annular fissure and broad-based central disc protrusion. No associated significant central canal or foraminal narrowing at this interspace. 3. 1 mm lipoma of the filum terminalis. Appreciate Ortho evaluation Further management as per Ortho Wanted to have Second Opinion-Dr Joseph is away for the rest of the week Discussed with the Patient and Dr Echevarria again The patient wanted to go for surgery on by Dr Echevarria Still has the pain with radiation and numbness on lateral and under left foot Surgery is planned for DVT PROPHYLAXIS: Scd and teds ambulate avoid pharmacological anticoagulation as pt may need spinal /epidural injection for pain relief FULL CODE DISPOSITION : expected to be discharged home when medically stable PT/OT eval requested medicine follow up with Dr Florian Vital Signs: Date Time Temp Pulse Resp B/P (MAP) Pulse Ox O2 Delivery O2 Flow Rate FiO2 12/09/17 15:18 36.9 81 18 135/73 (93) 96 Room Air 12/09/17 08:12 Room Air 12/09/17 07:32 36.7 49 15 116/71 (86) 97 Room Air 12/08/17 23:45 Room Air 12/08/17 23:45 56 12/08/17 23:04 36.5 49 15 117/69 (85) 96 Room Air 12/08/17 16:57 Room Air
[2017-12-09 22:45] VITALS: BP 113/61; PULSE 81; TEMP 36.8; O2SAT 96
[2017-12-10] MEDS ORDERED: TRAMADOL HCL 50 MG TAB PO PRN (01:15)
[2017-12-10] MEDS ORDERED: KETOROLAC TROMETHAMINE 15 MG/ML VIAL IV. PRN (01:15)
[2017-12-10] MEDS ORDERED: IBUPROFEN 200 MG TAB PO PRN (01:15)
[2017-12-10] MEDS ORDERED: KETOROLAC TROMETHAMINE 15 MG/ML VIAL ONE (01:23)
[2017-12-10] MEDS: POLYETHYLENE (MIRALAX) 17 GM PACK PO SCH ×4 (02:30→20:30)
[2017-12-10 07:15] VITALS: BP 140/79; PULSE 55; TEMP 36.8; O2SAT 97
[2017-12-10] MEDS: DEXAMETHASONE INJ 10 MG in SYRINGE 0 ML IV SCH ×3 (08:32→23:10)
[2017-12-10] MEDS: CYCLOBENZAPRINE HCL 5 MG TAB PO SCH ×3 (08:32→20:44)
[2017-12-10] MEDS: LIDODERM (LIDOCAINE) PATCH 5% TD SCH (08:33)
[2017-12-10] MEDS: GABAPENTIN 300 MG CAP PO SCH ×3 (08:33→20:44)
[2017-12-10] MEDS: DOCUSATE SODIUM 100 MG CAP PO SCH ×2 (08:33→20:44)
[2017-12-10 09:07] LABS: HEMATOCRIT 43.1 % (42-52); HEMOGLOBIN 15.1 g/dL (14.0-18.0); MEAN CELL VOLUME 82.7 fL (80-100); MEAN PLATELET VOLUME 10.5 fL (7.4-10.4); PLATELET COUNT 281 K/uL (130-400); RED CELL DISTRIBUTION WIDTH CV 11.9 % (11.5-14.5); RED CELL DISTRIBUTION WIDTH SD 35.5 fL (36.4-46.3)
[2017-12-10 09:36] LABS: CREATININE 0.89 mg/dl (0.60-1.40); POTASSIUM 4.1 mmol/L (3.5-5.1)
--- NOTE | 2017-12-10 13:28 | Progress Note ---
Internal Med Progress Note Date of Service: Dec 10, 2017. Provider Documentation: SUBJECTIVE: The patient was seen and examined Has Low Back pain with left leg Radiculopathy-worse symptoms since Friday Denies any Urine and or bowel issue but constipated Ambulating in the Hallways with some limping Waiting for Lumbar surgery tomorrow OBJECTIVE: Vital Signs-as noted below Exam: General-Moderate distress at rest Eyes-normal ENT-normal Neck-supple Lungs-clear to auscultate bilaterally Heart-Regular,no murmur Abdomen-Benign,no masses,bowel sound present Extremities-No edema Neuro-AAOx3 Straight leg raising produces radiating pain along the leg Impaired sensation along the lateral aspect of the left foot Ambulating with difficulty Lab data as noted below. ASSESSMENT & PLAN: INTRACTABLE BACK PAIN : HNP L5/S1 H/O of DJD of Lumber spine Pt been followed with Pain Management as out pt and was scheduled for epidural steroid injection in next week Presents with worsening /debilitating pain after shoveling snow Has been Iv Decadron, pain control with PRN Toradol/IV Dilaudid for severe intractable pain Pain management consult Clinically not any better MRI of lumber spine without contrast on 05/27/2017 : Degenerative disc disease noted at L4-L5/L5-S1 with loss of disc height and disc desiccation Left paracentral disc herniation at L5-S1 fully effaces the exiting left sided nerve roots , including the left S1 Nv root and fully effaced the left lateral recess and descending left sided nerve root MRI on 12/05/17::IMPRESSION: 1. At L5-S1 mild intervertebral disc space narrowing with small posterior disc bulge and left paracentral disc extrusion is present in addition to an adjacent 10 mm sequestered disc fragment which causes severe central canal narrowing with rightward displacement of the cauda equina resulting in severe left lateral recess, mild to moderate left and mild right foraminal narrowing. 2. Mild intervertebral disc space narrowing with disc desiccation and small annular disc bulge at L4-L5 with small posterior annular fissure and broad-based central disc protrusion. No associated significant central canal or foraminal narrowing at this interspace. 3. 1 mm lipoma of the filum terminalis. Appreciate Ortho evaluation Further management as per Ortho Wanted to have Second Opinion-Dr Joseph is away for the rest of the week Discussed with the Patient and Dr Echevarria again The patient wanted to go for surgery on by Dr Echevarria Still has the pain with radiation and numbness on lateral and under left foot Surgery is planned for tomorrow DVT PROPHYLAXIS: Scd and teds ambulate avoid pharmacological anticoagulation as pt may need spinal /epidural injection for pain relief FULL CODE DISPOSITION : expected to be discharged home when medically stable PT/OT eval requested medicine follow up with Dr Florian Vital Signs: Date Time Temp Pulse Resp B/P (MAP) Pulse Ox O2 Delivery O2 Flow Rate FiO2 12/10/17 08:33 Room Air 12/10/17 07:15 36.8 55 16 140/79 (99) 97 Room Air 12/09/17 23:55 Room Air 12/09/17 22:45 36.8 81 16 113/61 (78) 96 Room Air 12/09/17 16:14 Room Air 12/09/17 15:18 36.9 81 18 135/73 (93) 96 Room Air Lab Results: Results Past 24 Hours Test 12/10/17 08:35 Range/Units White Blood Count 12.60 4.8-10.8 K/uL Red Blood Count 5.21 4.7-6.1 M/uL Hemoglobin 15.1 14.0-18.0 g/dL Hematocrit 43.1 42-52 % Mean Corpuscular Volume 82.7 80-100 fL Mean Corpuscular Hemoglobin 29.0 25-34 pg Mean Corpuscular Hemoglobin Concent 35.0 32-36 g/dl RDW Standard Deviation 35.5 36.4-46.3 fL RDW Coefficient of Variation 11.9 11.5-14.5 % Platelet Count 281 130-400 K/uL Mean Platelet Volume 10.5 7.4-10.4 fL Sodium Level 139 136-145 mmol/L Potassium Level 4.1 3.5-5.1 mmol/L Chloride Level 102 98-107 mmol/L Carbon Dioxide Level 29 21-32 mmol/L Anion Gap 8.0 3-11 mmol/L Blood Urea Nitrogen 24 7-18 mg/dl Creatinine 0.89 0.60-1.40 mg/dl Est Creatinine Clear Calc Drug Dose 127.2 ml/min Estimated GFR () 128.4 Estimated GFR (Non- 110.8 BUN/Creatinine Ratio 26.4 10-20 Random Glucose 120 70-99 mg/dl Calcium Level 9.0 8.5-10.1 mg/dl
--- NOTE | 2017-12-10 14:52 | Anesthesiology Progress Note ---
Anesthesia Progress Note Date of Service Dec 10, 2017. Progress Notes The patient is a 37 y/o male scheduled for a L5/S1 microdiscectomy tomorrow. He has had L leg pain. PMH includes chewing tobacco use for 17 years. Labs are significant for WBC 12.6. On exam the patient is pleasant. He has a MP 1 airway with good neck extension. He has a root canal on a bottom right tooth. Lungs are clear. Heart is RRR. He is an ASA 2. The patient was consented for general anesthesia. He was counseled to remain NPO after midnight except for sips of water as well as to stop using chewing tobacco at midnight.
[2017-12-10 15:28] VITALS: BP 127/72; PULSE 92; TEMP 37; O2SAT 95
[2017-12-10] MEDS ORDERED: D5W AND LACTATED RINGERS 1,000 ML IV SCH (16:30)
--- NOTE | 2017-12-10 17:42 | ORTHOPEDICS PROGRESS NOTE ---
DATE: 12/10/2017 SUBJECTIVE: Alert and oriented. Continued subjective description of pain, numbness, tingling, weakness. OBJECTIVE: As well with decreased Achilles reflex, pain with straight leg raising, numbness and tingling. He has adequate bowel sounds, no incontinence. IMAGES: Reviewed. ASSESSMENT: Large disc herniation, lumbar spine with incapacitating pain, numbness and neurological deficit. DISPOSITION: Includes surgery tomorrow, roughly about 10:00 tomorrow, which is , 12/11/2017. We will keep him n.p.o. after midnight. I have started some IV fluids.
[2017-12-10 22:48] VITALS: BP 120/69; PULSE 69; TEMP 36.9; O2SAT 96
[2017-12-11] VITALS (8 sets, daily range): BP systolic 109–145; BP diastolic 67–92; PULSE 52–63; TEMP 36.4–36.9; O2SAT 93–99
[2017-12-11] MEDS: POLYETHYLENE (MIRALAX) 17 GM PACK PO SCH ×4 (02:12→20:57)
[2017-12-11] MEDS: GABAPENTIN 300 MG CAP PO SCH ×3 (08:29→20:59)
[2017-12-11] MEDS: CYCLOBENZAPRINE HCL 5 MG TAB PO SCH ×3 (08:29→20:59)
[2017-12-11] MEDS: DOCUSATE SODIUM 100 MG CAP PO SCH ×2 (08:29→20:59)
[2017-12-11] MEDS: LIDODERM (LIDOCAINE) PATCH 5% TD SCH (08:29)
[2017-12-11] MEDS: DEXAMETHASONE INJ 10 MG in SYRINGE 0 ML IV SCH ×2 (08:29→16:25)
[2017-12-11] MEDS ORDERED: MIDAZOLAM HCL 1 MG/ML 2ML VIAL ONE (10:04)
[2017-12-11] MEDS ORDERED: FENTANYL CITRATE INJ 50 MCG/1 ML 2 ML VIAL ONE ×2 (10:04→11:13)
[2017-12-11] MEDS ORDERED: THROMBIN FOR SOLN 20000 UNIT KIT ONE (10:30)
[2017-12-11] MEDS ORDERED: VANCOMYCIN HCL 1000MG/20ML VIAL ONE (10:30)
[2017-12-11] MEDS ORDERED: GELATIN SPONGE SZ 100 ONE (10:31)
[2017-12-11] MEDS ORDERED: BUPIVACAINE/EPINEPHRINE 0.5% MPF 1:200,000 30 ML VIAL ONE (10:32)
[2017-12-11] MEDS ORDERED: BACITRACIN 50000 UNIT VIAL ONE (10:33)
--- NOTE | 2017-12-11 10:45 | History & Physical Bridge Note ---
H&P Re-Evaluation Bridge Note: I have examined the patient, reviewed the History & Physical and in the interval since the performance of the History & Physical I have noted the following changes of clinical significance: No changes noted
[2017-12-11] MEDS ORDERED: CEFAZOLIN SOD 2000MG/15 ML IV PUSH IV ONE (10:48)
[2017-12-11] MEDS ORDERED: HYDROmorphone INJ 2 MG/ML SYR/VIAL ONE ×2 (11:25→11:55)
[2017-12-11] MEDS ORDERED: DEXAMETHASONE SOD INJ 4 MG/ML VIAL ONE (11:29)
[2017-12-11] MEDS ORDERED: LIDOCAINE HCL 2% 2 ML VIAL (20MG/ML) ONE (11:29)
[2017-12-11] MEDS ORDERED: ONDANSETRON INJ 2 MG/ML 2 ML VIAL ONE (11:29)
[2017-12-11] MEDS ORDERED: PROPOFOL IV EMULSION 10 MG/ML 20 ML VIAL IV ONE (11:29)
--- NOTE | 2017-12-11 11:36 | DIAGNOSTIC IMAGING REPORT ---
SPINE ONE VIEW, ANY LEVEL CLINICAL HISTORY: 37 years-old Male presenting with L5-S1 MICRODISCETOMY. TECHNIQUE: 1 fluoroscopic spot image(s) obtained as part of an intraoperative procedure. COMPARISON: None. FINDINGS/IMPRESSION: Surgical material projects over the L5-S1 disc space in the posterior elements. Please see surgical report for further details. Fluoroscopy dosage (mGy): 1.41. Fluoroscopy time: 1.9 seconds. Number of fluoroscopic spot images: 1. Electronically signed by: Raman Arreola M.D. 12/11/2017 11:34 AM Dictated Date/Time: 12/11/2017 11:34 AM
[2017-12-11] MEDS ORDERED: ESMOLOL HCL 10 MG/ML 10 ML VIAL ONE (11:56)
[2017-12-11] MEDS ORDERED: GLYCOPYRROLATE INJ 0.2 MG/ML VIAL ONE (11:56)
[2017-12-11] MEDS ORDERED: KETOROLAC TROMETHAMINE 30 MG/ML VIAL ONE (11:56)
[2017-12-11] MEDS ORDERED: BUPIVACAINE/EPINEPHRINE 0.5% MPF 1:200,000 30 ML VIAL INJ ONE (11:56)
[2017-12-11] MEDS ORDERED: NEOSTIGMINE METHYLSULFATE 1 MG/ML 10ML VIAL ONE (11:56)
--- NOTE | 2017-12-11 12:00 | [facility] Post Operative Brief Note ---
Immediate Operative Summary Operative Date Dec 11, 2017. Pre-Operative Diagnosis Large disc herniation L5-S1, lumbar spine with incapacitating pain, numbness and neurological deficit. Post-Operative Diagnosis Large disc herniation L5-S1, lumbar spine with incapacitating pain, numbness and neurological deficit. Procedure(s) Performed Laminectomy and Disectomy L5-S1 Surgeon Dr. Echevarria Engineer Remote Control Diesel Surgeon(s) MILAD Valentin Estimated Blood Loss 50 ml Findings Consistent with Post-Op Diagnosis Specimens none per surgeon Anesthesia Type General Complication(s) none Disposition Disposition: Recovery Room / PACU
[2017-12-11] MEDS ORDERED: SODIUM CHLORIDE 0.9% 1000ML 1,000 ML IV SCH (12:04)
[2017-12-11] MEDS ORDERED: MAGNESIUM HYDROXIDE SUSP 30 ML UDC PO PRN (12:15)
[2017-12-11] MEDS ORDERED: LORAZEPAM INJ 1 MG in SYRINGE 0 ML IV PRN (12:15)
[2017-12-11] MEDS ORDERED: HYDROmorphone INJ 1 MG/ML SYR IV PRN ×2 (12:15)
[2017-12-11] MEDS ORDERED: OXYCODONE/ACETAMINOPHEN 5-325 TAB PO PRN (12:15)
[2017-12-11] MEDS ORDERED: METOCLOPRAMIDE HCL INJ 5 MG/ML 2 ML VIAL IV PRN (12:15)
[2017-12-11] MEDS ORDERED: PROMETHAZINE HCL INJ 12.5 MG in SODIUM CHLORIDE 0.9% 50ML 50 ML IV PRN ×2 (12:15→12:30)
[2017-12-11] MEDS ORDERED: ACETAMINOPHEN 325 MG TAB PO PRN (12:15)
[2017-12-11] MEDS: HYDROmorphone INJ 1 MG/ML SYR IV PRN ×8 (12:15→12:50)
[2017-12-11] MEDS ORDERED: LORAZEPAM 1 MG TAB PO PRN (12:15)
[2017-12-11] MEDS ORDERED: ONDANSETRON INJ 2 MG/ML 2 ML VIAL IV PRN ×2 (12:15→12:30)
--- NOTE | 2017-12-11 12:21 | OPERATIVE REPORT ---
DATE OF OPERATION: 12/11/2017 PREOPERATIVE DIAGNOSIS: Large disc herniation with neurological deficit lumbar spine, L5-S1. POSTOPERATIVE DIAGNOSIS: Same. PROCEDURE: Laminectomy and discectomy L5-S1 lumbar spine. SURGEON: Dr. Echevarria. CARTON MAKING MACHINE OPERATOR: Marc Souza PA-C. COMPLICATION: Zero. BLOOD LOSS: Less than 50. ANESTHETIC: General. No implants used. PROCEDURE IN DETAIL: The patient was taken to the operating room and general intubated anesthetic provided to the patient, placed prone on Efrain table, shaved, scrubbed, prepped and draped sterile. I made a skin incision with C-arm guidance over the L5-S1 disc interspace, dissecting the soft tissue off the lamina on the left hand side only, preserved all structures midline and on the right. We did an upgoing laminotomy, downgoing foraminotomy, took off the ligamentum flavum, a small amount of this. We found the nerve root and associated dura. We carefully pulled the dura in the medial direction and nerve root off the disc herniation. The disc was very large and right underneath the nerve root. This was taken out in piecemeal fashion, multiple large fragments of disc material. I then used the 15 scalpel blade into the disc itself and evacuated some of the disc in the interspace at L5-S1. I accentuated the foraminotomy. We irrigated and closed in layers, 3-0 nylon on the skin over a Hemovac drain, over vancomycin powder. The patient returned to PACU stable. Sponge and needle count correct. No complications. I attest to the content of the Intraoperative Record and any orders documented therein. Any exception s are noted below.
[2017-12-11] MEDS ORDERED: ATROPINE SULFATE 0.1 MG/ML 5ML SYR IV PRN (12:30)
[2017-12-11] MEDS ORDERED: NALOXONE HCL 0.4 MG/1 ML VIAL/CARP IV PRN (12:30)
[2017-12-11] MEDS ORDERED: FLUMAZENIL 0.1 MG/1 ML 10 ML VIAL IV PRN (12:30)
[2017-12-11] MEDS ORDERED: EpHEDrine SULFATE INJ 50 MG/ML AMP IV PRN (12:30)
[2017-12-11] MEDS ORDERED: LORAZEPAM 2 MG/ML 1 ML VIAL ONE (12:49)
--- NOTE | 2017-12-11 13:08 | Anesthesiology Progress Note ---
Anesthesia Post Op Note Date & Time Dec 11, 2017 at 13:08 Vital Signs Pain Intensity: 4 Vital Signs Past 12 Hours Date Time Temp Pulse Resp B/P (MAP) Pulse Ox O2 Delivery O2 Flow Rate FiO2 12/11/17 12:55 36.3 54 12 136/80 98 Nasal Cannula 2 12/11/17 12:45 56 12 139/81 98 Nasal Cannula 2 12/11/17 12:35 60 12 139/84 99 Nasal Cannula 2 12/11/17 12:25 70 16 148/88 99 Oxymask 10 12/11/17 12:15 36.2 70 12 155/86 99 Oxymask 10 12/11/17 12:07 36.2 73 12 157/89 97 Oxymask 10 12/11/17 09:55 36.8 64 18 141/93 (109) 97 Room Air 12/11/17 07:21 Room Air 12/11/17 07:09 36.8 53 16 109/73 (85) 93 Room Air Notes Mental Status: alert / awake / arousable, participated in evaluation Pt Amnestic to Procedure: Yes Nausea / Vomiting: adequately controlled Pain: adequately controlled Airway Patency, RR, SpO2: stable & adequate BP & HR: stable & adequate Hydration State: stable & adequate Anesthetic Complications: no major complications apparent
[2017-12-11] MEDS ORDERED: IV FLUIDS COMPLETED PRN (13:30)
--- NOTE | 2017-12-11 18:50 | Progress Note ---
Internal Med Progress Note Date of Service: Dec 11, 2017. Provider Documentation: SUBJECTIVE: s/p back surgery today has pain at surgery site says some numbness in left foot which was there prior to surgery denies any chest pain or sob afebrile no blurry vision OBJECTIVE: Vital Signs-as noted below Exam: General-alert and oriented. Not in distress ENT-normal hearing Neck-no neck masses Lungs-cta b/l no wheezing or crackles Heart-s1 and s2 heard regular rate and rhythm no murmurs Abdomen-soft bowel sounds present non tender no distension musculoskeletal s/p back surgery Extremities-no edema no erythema Neuro-alert and awake moves extremities Lab data as noted below. 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 At L5-S1 mild intervertebral disc space narrowing with small posterior disc bulge and left paracentral disc extrusion is present in addition to an adjacent 10 mm sequestered disc fragment which causes severe central canal narrowing with rightward displacement of the cauda equina resulting in severe left lateral recess, mild to moderate left and mild right foraminal narrowing. 2. Mild intervertebral disc space narrowing with disc desiccation and small annular disc bulge at L4-L5 with small posterior annular fissure and broad-based central disc protrusion. No associated significant central canal or foraminal narrowing at this interspace. 3. 1 mm lipoma of the filum terminalis. s/p surgery today by Ortho pt/ot post op pain control DVT PROPHYLAXIS: Scd and teds ambulate FULL CODE DISPOSITION : pt/ot to be determined Vital Signs: Date Time Temp Pulse Resp B/P (MAP) Pulse Ox O2 Delivery O2 Flow Rate FiO2 12/11/17 16:30 60 16 128/76 (93) 95 Room Air 12/11/17 15:33 36.7 53 18 145/89 (107) 97 Nasal Cannula 2.0 12/11/17 14:30 52 16 145/92 (109) 98 Nasal Cannula 4.0 12/11/17 14:00 55 16 141/87 (105) 99 12/11/17 13:30 98 Nasal Cannula 4.0 12/11/17 13:30 36.4 58 16 132/82 (99) 98 Nasal Cannula 4.0 12/11/17 13:05 53 12 132/80 97 Nasal Cannula 2 12/11/17 12:55 36.3 54 12 136/80 98 Nasal Cannula 2 12/11/17 12:45 56 12 139/81 98 Nasal Cannula 2 12/11/17 12:35 60 12 139/84 99 Nasal Cannula 2 12/11/17 12:25 70 16 148/88 99 Oxymask 10 12/11/17 12:15 36.2 70 12 155/86 99 Oxymask 10 12/11/17 12:07 36.2 73 12 157/89 97 Oxymask 10 12/11/17 09:55 36.8 64 18 141/93 (109) 97 Room Air 12/11/17 07:21 Room Air 12/11/17 07:09 36.8 53 16 109/73 (85) 93 Room Air 12/10/17 22:48 36.9 69 16 120/69 (86) 96 Room Air 12/10/17 19:40 Room Air
[2017-12-12] MEDS: DEXAMETHASONE INJ 10 MG in SYRINGE 0 ML IV SCH ×2 (00:15→09:19)
[2017-12-12] MEDS ORDERED: NURSING VERBAL MED ORDER ONE (01:15)
[2017-12-12] MEDS: POLYETHYLENE (MIRALAX) 17 GM PACK PO SCH ×2 (01:15→08:30)
[2017-12-12 03:24] VITALS: BP 105/65; PULSE 52; TEMP 36.7; O2SAT 93
[2017-12-12] MEDS ORDERED: BISACODYL 10 MG SUPP PR PRN (06:00)
[2017-12-12] MEDS ORDERED: BISACODYL 5 MG TABEC PO PRN (06:00)
[2017-12-12 07:17] VITALS: BP 122/74; PULSE 57; TEMP 36.9; O2SAT 96
--- NOTE | 2017-12-12 07:26 | Discharge Instructions ---
Discharge Instructions Date of Service Dec 12, 2017. Admission Reason for Admission: Back Pain Discharge Discharge Diagnosis / Problem: disc herniation Discharge Goals Goal(s): Improve function Activity Recommendations Activity Limitations: as noted below Lifting Limitations: until after follow-up appointment Exercise/Sports Limitations: until after follow-up appointment May Resume Sexual Activity: after follow-up appointment Shower/Bathe: keep incision dry rest . Instructions / Follow-Up Instructions / Follow-Up MEDICATIONS: Please take your prescriptions as instructed at your pre-op appointment. SPECIAL CARE: The following information is intended to answer some of the common questions and concerns regarding your surgery. Each patient is an individual and receives individual counselling throughout the course of treatment, from diagnosis to surgery all the way through recovery. What follows is not an exhaustive list, but should be a useful guide to some of the common questions and concerns patients have regarding their surgeries. These are not provided to keep you from calling us; rather, they give you something accurate and concrete to reference as you recover from your procedure. If you need us, we are available to you. As always, if you are not sure about something, call us at [phone]. MEDICAL EMERGENCIES: For these conditions, call 911 or go to your local hospital-based Emergency Department - not [facility] or equivalent. * Paralysis * Severe chest pain or difficulty breathing * Swelling or redness of either leg Spine procedures can be rather complex and though complications are rare, they do occur. In such cases, effective advice regarding emergency situations cannot always be addressed over the telephone. You may be referred to the emergency department for more effective management of your problem. Activity Limitations: It is important to give your body time to heal, so please limit your activities : * In general, don't do anything that moves your spine too much. You should avoid contact sports, twisting or heavy lifting while you recover. * 5-10 pounds is all you should attempt to lift. * You should not plan on driving for approximately 3 weeks and you should avoid traveling more than 30-45 minutes at a time. Longer trips should be broken down with walking breaks spaced appropriately. * Physical therapy is not usually required. * Walking and good posture practices will help you recover and regain your function. * Avoid straining or sudden changes in position. * In general, the goal is to take it easy and recover. Don't cause any new problems. Just relax. Showers: * Do not take a bath, use a Jacuzzi or hot tub or otherwise submerge your incision. * It is usually safe to take a shower 4-5 days after your surgery. * Your incision does not require any special creams or ointments. * Simply clean it with soap and water, dry and re-dress with a clean bandage afterwards. Incision: * Keep incision clean, dry and protected until your first follow-up appointment. * Some amount of drainage and redness is normal. Any drainage should be fairly clear and not have a foul odor. * If you feel anything is wrong or you have excessive drainage, please call us. * Your stitches and adriana will be removed 10-14 days after your surgery. At the time of your first post-op visit. * Neck surgeries are typically closed with a suture underneath the skin. The steri-strips over the incision should be maintained until we see you in the office. Bracing: * You may be provided with a back or neck brace to encourage good posture and prevent injury. It will remind you not to do too much as you heal and will alert others to the fact that you have had a surgery. * Back braces may be removed for showers and when you are resting at home. They must be worn when you are walking around for any period of time or for travel. * For neck surgery, you will likely be provided with two cervical collars. The soft collar ([place] or foam rubber) is worn most commonly throughout the day and while sleeping. The plastic collar (provided at the hospital) is for showering/bathing. * Except while eating, collars should remain in place. More specifically, bracing is provided for a purpose and should be worn. * Please obtain your brace or collars prior to your operation and bring them to the hospital with you on the day of surgery. * You should also bring your collars to your post-op appointment with Dr. Echevarria. You should always take good care of your body and practice healthy habits, especially following surgery. You should: * Follow your doctor's treatment plan * Sit and stand properly with good posture (ears over shoulders, shoulders over hips) Don't slouch * Learn to lift correctly * Exercise regularly (low-impact aerobic exercise is especially good, but check with your doctor first) * Generally, be up and walking for 5-10 minutes at a time at least 3-4 times per day from the day you get home * Increasing walking to tolerance until you can walk for 20-30 minutes at a time * Attain and maintain a healthy body weight * Eat healthy foods ( a well-balanced, low-fat diet rich in fruits and vegetables) and get enough calcium * Avoid excessive use of alcohol When to call our office - If you notice any of the following: * Increased pain not relieve by pain medicine * Fevers greater then 100 degrees F, chills or flu symptoms * Increased redness around incision * Drainage from the incision that is not clear * Any foul smelling drainage * Swelling or fluid collection beneath the skin Miscellaneous: * In the hospital, you may be given a walker or cane for support while walking. These are temporary needs and are intended to prevent injuries due to falls. You may discontinue them when you feel strong and steady enough on your feet. * Sleep in a comfortable position. We find that many patients find a lounge chair or recliner with several pillows to be beneficial in the early post-operative period. * The support stockings should be used for 7-10 days and may be discontinued when you are back to walking more and conducting usual household activities. No problem is insignificant. We are here to help you and get you well. Contact us at [phone]. Definitions: Foraminotomy: If part of the disc or a bone spur (osteophyte) is pressing on a nerve as it leaves the vertebra (through an exit called the foramen), a foraminotomy may be done. Otomy means "to make an opening." A foraminotomy is making the opening of the foramen larger, so the nerve can exit without being compressed. Laminotomy: Similar to the foraminotomy, a laminotomy makes a larger opening, this time in your bony plate protecting your spinal canal and spinal cord (the lamina). The lamina may be pressing on your nerve, so the surgeon may make more room for the nerves using a laminotomy. Laminectomy: Sometimes, a laminotomy is not sufficient. The surgeon may need to remove all or part of the lamina. This procedure is called a laminectomy. This can often be done at many levels without any harmful effects. Current Hospital Diet Patient's current hospital diet: Regular Diet Discharge Diet Recommended Diet: Regular Diet Procedures Procedures Performed: Laminectomy and Disectomy L5-S1 Pending Studies Studies pending at discharge: no Medical Emergencies . Who to Call and When: Medical Emergencies: If at any time you feel your situation is an emergency, please call 911 immediately. . Non-Emergent Contact Non-Emergency issues call your: Primary Care Provider . "Provider Documentation" section prepared by Franklyn Echevarria. . VTE Core Measure Inpt VTE Proph given/why not?: Nona Wild, [facility]
--- NOTE | 2017-12-12 08:01 | Anesthesiology Progress Note ---
Anesthesia Post Op Note Date & Time Dec 12, 2017 at 08:00 Vital Signs Pain Intensity: 2 Vital Signs Past 12 Hours Date Time Temp Pulse Resp B/P (MAP) Pulse Ox O2 Delivery O2 Flow Rate FiO2 12/12/17 03:24 36.7 52 16 105/65 (78) 93 Room Air 12/11/17 23:25 36.6 52 16 110/67 (81) 93 Room Air Notes Mental Status: alert / awake / arousable Pt Amnestic to Procedure: Yes Nausea / Vomiting: adequately controlled Pain: adequately controlled Airway Patency, RR, SpO2: stable & adequate BP & HR: stable & adequate Hydration State: stable & adequate when pt woke up from anesthesia he complained that his pain at surgical site was a 7/10. With treatment is has become controlled down to a 2/10
[2017-12-12] MEDS: LIDODERM (LIDOCAINE) PATCH 5% TD SCH (09:00)
[2017-12-12] MEDS ORDERED: POLYETHYLENE (MIRALAX) 17 GM PACK PO SCH (09:00)
[2017-12-12] MEDS: CYCLOBENZAPRINE HCL 5 MG TAB PO SCH ×2 (09:20→13:25)
[2017-12-12] MEDS: OXYCODONE/ACETAMINOPHEN 5-325 TAB PO PRN ×2 (09:20→13:31)
[2017-12-12] MEDS: GABAPENTIN 300 MG CAP PO SCH ×2 (09:20→13:25)
[2017-12-12] MEDS: DOCUSATE SODIUM 100 MG CAP PO SCH (09:21)
[2017-12-12 11:57] VITALS: BP 122/74; PULSE 57; TEMP 36.9; O2SAT 96
[2017-12-12] MEDS ORDERED: CYCL10TA6 PO (14:52)
--- NOTE | 2017-12-14 18:41 | Discharge Summary ---
Discharge Summary Date of Service Dec 14, 2017. Discharge Summary Admission Date: Dec 09, 2017 at 11:16 Discharge Date: Dec 12, 2017 Discharge Disposition: Home Principal Diagnosis: INTRACTABLE BACK PAIN S/P SURGERY Procedures: LUMBAR SPINE MRI: 1. At L5-S1 mild intervertebral disc space narrowing with small posterior disc bulge and left paracentral disc extrusion is present in addition to an adjacent 10 mm sequestered disc fragment which causes severe central canal narrowing with rightward displacement of the cauda equina resulting in severe left lateral recess, mild to moderate left and mild right foraminal narrowing. 2. Mild intervertebral disc space narrowing with disc desiccation and small annular disc bulge at L4-L5 with small posterior annular fissure and broad-based central disc protrusion. No associated significant central canal or foraminal narrowing at this interspace. 3. 1 mm lipoma of the filum terminalis. Consultations: ORTHOPEDICS Medication Reconciliation Continued Medications: Cyclobenzaprine Hcl (Flexeril) 10 Mg Tab 10 MG PO TID PRN for Muscle Spasms, #21 TAB (This prescription has been renewed) Hydrocodone/Acetaminophen 5MG/325MG ([place] 5MG/325MG) Tab 1 TABLET PO Q6H PRN for Pain, TAB PRN PAIN Admission Information HPI (per Admitting provider): 37 Yo M with medical hx of DJD of Lumber spine presented to ER with acute left sided low back pain with left sided sciatica pain /numbness radiation to left foot . pt has chronic ( > 6 months) hx of persistent left lower lumber /buttock region pain with radiation to post thigh and calf . No hx of prior trauma or other initiating event MRI of lumber spine on May 2017 : showed disc herniation on left L5- S1 with clear contact with traversing S1 root , there may be a small annular tear at L4-L5 pt was seen by Orthopedics Dr Echevarria ,was recommended to have conservative management with pain control , PT/OT evaluated by Pain Management Dr Teixeira on 12/03/2017-pt had limited improvement of his symptom with trial of NSAID's , muscle relaxant and Prednisone taper schedule for Left S1 transforaminal epidural steroid injection in next week Pt developed worsening of back pain after shoveling snow on Friday12/03/17 , pain was intractable , excruciating , had difficulty in supine position left leg felt numb and weak , reports of hesitancy in urination , no saddle anesthesia pt called Dr Teixeira office for advice , was asked to come to ER for eval at [facility] , pt continued to have sever constant low back pain , MRI of lumber spine ordered by ER physician pt was unable to lie flat for MRI scan no report of fever or chills, no cough or congestion , no body ache denies urine or bowel incontinence Physical Exam (per Admitting): General Appearance: + moderate distress (due to back pain , remains in rt lateral decub position , unable to lie flat or change position due to back pain and sciatica ) Head: normocephalic, atraumatic Eyes: normal inspection, sclerae normal ENT: normal ENT inspection, hearing grossly normal Neck: thyroid normal, no carotid bruits, trachea midline Respiratory/Chest: chest non-tender, lungs clear, normal breath sounds Cardiovascular: regular rate, rhythm, no edema, no JVD, no murmur, normal peripheral pulses Abdomen/GI: normal bowel sounds, non tender, soft Back: + pertinent finding (+ point tendernss on low back /left lower hip/ buttock area /left post thigh /calf to left side of foot ) Extremities/Musculoskelatal: + calf tenderness (left side calf tenderness ) , + pertinent finding (+ point tendernss on low back / with radiation pain to left lower hip/buttock area /left post thigh /calf to left side of foot ) Neurologic/Psych: alert, oriented x 3, + motor weakness (rt sided normal strength , left sided diminished strength due to pain ), + sensory deficit ( left side post thigh /buttock /calf and foot area numbness ) Hospital Course INTRACTABLE BACK PAIN : HNP L5/S1 H/O of DJD of Lumber spine failed out patient management MRI on 12/05/17::IMPRESSION: 1. At L5-S1 mild intervertebral disc space narrowing with small posterior disc bulge and left paracentral disc extrusion is present in addition to an adjacent 10 mm sequestered disc fragment which causes severe central canal narrowing with rightward displacement of the cauda equina resulting in severe left lateral recess, mild to moderate left and mild right foraminal narrowing. 2. Mild intervertebral disc space narrowing with disc desiccation and small annular disc bulge at L4-L5 with small posterior annular fissure and broad-based central disc protrusion. No associated significant central canal or foraminal narrowing at this interspace. 3. 1 mm lipoma of the filum terminalis. s/p surgery today by Ortho pt/ot post op pain control DVT PROPHYLAXIS: Scd and teds ambulate FULL CODE DISPOSITION : pt/ot to be determined Total time spent on discharge = 30MINUTES This includes examination of the patient, discharge planning, medication reconciliation, and communication with other providers. Discharge Instructions Discharge Instructions Date of Service Dec 12, 2017. Admission Reason for Admission: Back Pain Discharge Discharge Diagnosis / Problem: disc herniation Discharge Goals Goal(s): Improve function Activity Recommendations Activity Limitations: as noted below Lifting Limitations: until after follow-up appointment Exercise/Sports Limitations: until after follow-up appointment May Resume Sexual Activity: after follow-up appointment Shower/Bathe: keep incision dry rest . Instructions / Follow-Up Instructions / Follow-Up MEDICATIONS: Please take your prescriptions as instructed at your pre-op appointment. SPECIAL CARE: The following information is intended to answer some of the common questions and concerns regarding your surgery. Each patient is an individual and receives individual counselling throughout the course of treatment, from diagnosis to surgery all the way through recovery. What follows is not an exhaustive list, but should be a useful guide to some of the common questions and concerns patients have regarding their surgeries. These are not provided to keep you from calling us; rather, they give you something accurate and concrete to reference as you recover from your procedure. If you need us, we are available to you. As always, if you are not sure about something, call us at [phone]. MEDICAL EMERGENCIES: For these conditions, call 911 or go to your local hospital-based Emergency Department - not [facility] or equivalent. * Paralysis * Severe chest pain or difficulty breathing * Swelling or redness of either leg Spine procedures can be rather complex and though complications are rare, they do occur. In such cases, effective advice regarding emergency situations cannot always be addressed over the telephone. You may be referred to the emergency department for more effective management of your problem. Activity Limitations: It is important to give your body time to heal, so please limit your activities : * In general, don't do anything that moves your spine too much. You should avoid contact sports, twisting or heavy lifting while you recover. * 5-10 pounds is all you should attempt to lift. * You should not plan on driving for approximately 3 weeks and you should avoid traveling more than 30-45 minutes at a time. Longer trips should be broken down with walking breaks spaced appropriately. * Physical therapy is not usually required. * Walking and good posture practices will help you recover and regain your function. * Avoid straining or sudden changes in position. * In general, the goal is to take it easy and recover. Don't cause any new problems. Just relax. Showers: * Do not take a bath, use a Jacuzzi or hot tub or otherwise submerge your incision. * It is usually safe to take a shower 4-5 days after your surgery. * Your incision does not require any special creams or ointments. * Simply clean it with soap and water, dry and re-dress with a clean bandage afterwards. Incision: * Keep incision clean, dry and protected until your first follow-up appointment. * Some amount of drainage and redness is normal. Any drainage should be fairly clear and not have a foul odor. * If you feel anything is wrong or you have excessive drainage, please call us. * Your stitches and adriana will be removed 10-14 days after your surgery. At the time of your first post-op visit. * Neck surgeries are typically closed with a suture underneath the skin. The steri-strips over the incision should be maintained until we see you in the office. Bracing: * You may be provided with a back or neck brace to encourage good posture and prevent injury. It will remind you not to do too much as you heal and will alert others to the fact that you have had a surgery. * Back braces may be removed for showers and when you are resting at home. They must be worn when you are walking around for any period of time or for travel. * For neck surgery, you will likely be provided with two cervical collars. The soft collar ([place] or foam rubber) is worn most commonly throughout the day and while sleeping. The plastic collar (provided at the hospital) is for showering/bathing. * Except while eating, collars should remain in place. More specifically, bracing is provided for a purpose and should be worn. * Please obtain your brace or collars prior to your operation and bring them to the hospital with you on the day of surgery. * You should also bring your collars to your post-op appointment with Dr. Echevarria. You should always take good care of your body and practice healthy habits, especially following surgery. You should: * Follow your doctor's treatment plan * Sit and stand properly with good posture (ears over shoulders, shoulders over hips) Don't slouch * Learn to lift correctly * Exercise regularly (low-impact aerobic exercise is especially good, but check with your doctor first) * Generally, be up and walking for 5-10 minutes at a time at least 3-4 times per day from the day you get home * Increasing walking to tolerance until you can walk for 20-30 minutes at a time * Attain and maintain a healthy body weight * Eat healthy foods ( a well-balanced, low-fat diet rich in fruits and vegetables) and get enough calcium * Avoid excessive use of alcohol When to call our office - If you notice any of the following: * Increased pain not relieve by pain medicine * Fevers greater then 100 degrees F, chills or flu symptoms * Increased redness around incision * Drainage from the incision that is not clear * Any foul smelling drainage * Swelling or fluid collection beneath the skin Miscellaneous: * In the hospital, you may be given a walker or cane for support while walking. These are temporary needs and are intended to prevent injuries due to falls. You may discontinue them when you feel strong and steady enough on your feet. * Sleep in a comfortable position. We find that many patients find a lounge chair or recliner with several pillows to be beneficial in the early post-operative period. * The support stockings should be used for 7-10 days and may be discontinued when you are back to walking more and conducting usual household activities. No problem is insignificant. We are here to help you and get you well. Contact us at [phone]. Definitions: Foraminotomy: If part of the disc or a bone spur (osteophyte) is pressing on a nerve as it leaves the vertebra (through an exit called the foramen), a foraminotomy may be done. Otomy means "to make an opening." A foraminotomy is making the opening of the foramen larger, so the nerve can exit without being compressed. Laminotomy: Similar to the foraminotomy, a laminotomy makes a larger opening, this time in your bony plate protecting your spinal canal and spinal cord (the lamina). The lamina may be pressing on your nerve, so the surgeon may make more room for the nerves using a laminotomy. Laminectomy: Sometimes, a laminotomy is not sufficient. The surgeon may need to remove all or part of the lamina. This procedure is called a laminectomy. This can often be done at many levels without any harmful effects. Current Hospital Diet Patient's current hospital diet: Regular Diet Discharge Diet Recommended Diet: Regular Diet Procedures Procedures Performed: Laminectomy and Disectomy L5-S1 Pending Studies Studies pending at discharge: no Medical Emergencies . Who to Call and When: Medical Emergencies: If at any time you feel your situation is an emergency, please call 911 immediately. . Non-Emergent Contact Non-Emergency issues call your: Primary Care Provider . "Provider Documentation" section prepared by Franklyn Echevraria.
== END 2017-12-12 13:54 | disposition home or self-care (01) | DRG 520 ==
LOC: C.EDB 17:04 → C.MSW 20:55 → ENRESERV 21:05 → OBSVTOIN 12-09 11:16
PROVIDERS: ADMIT Hospitalist; ATTEND Internal Medicine
PROC: 0ST40ZZ Resection of Lumbosacral Disc, Open Approach (ICD-10-PCS; principal; 2017-12-11 10:00)
DX: M51.17 Intervertebral disc disorders with radiculopathy, lumbosacral region (principal)

== ENCOUNTER → 2018-02-13 | Outpatient (CLI) | payer OTHER ==
[~2018-02-13] MED LIST: CYCL10TA6 PO; HYDR-5688 PO
--- NOTE | 2018-02-13 12:47 | DIAGNOSTIC IMAGING REPORT ---
ULTRASOUND R VENOUS DOPPLER UPR EXT UNILATERAL CLINICAL HISTORY: Right arm swelling COMPARISON STUDY: No previous studies for comparison. FINDINGS: No intraluminal thrombus was visualized. The internal jugular, subclavian, axillary, cephalic, brachial, basilic, radial, and ulnar veins were patent. There is a superficial thrombus in the region of the right antecubital fossa at the site of a previous IV. IMPRESSION: 1. Small superficial thrombus in the right antecubital region at the site of a previous IV. 2. No evidence of thrombus within the deep system proper Electronically signed by: Bryson Quinteros M.D. 02/13/2018 12:46 PM Dictated Date/Time: 02/13/2018 12:45 PM
== END | disposition home or self-care (01) ==
LOC: C.ULTRBC 12:01
PROVIDERS: ATTEND Physician Assistant Medical
DX: M79.89 Other specified soft tissue disorders (principal)

== ENCOUNTER 2024-07-21 15:07 | Observation (INO) ==
[2024-07-21] MEDS: SODIUM CHLORIDE 0.9% 500 ML IV STA (16:39)
[2024-07-21 17:07] LABS: Basophils # (auto) 0.03 K/uL (0.00-0.20); Basophils % (auto) 0.2 %; Eosinophils # (auto) 0.01 K/uL (0.00-0.50); Eosinophils % (auto) 0.1 %; Hematocrit (blood only) 42.3 % (42.0-52.0); Hemoglobin 14.6 g/dl (14.0-18.0); Immature Granulocytes # (auto) 0.05 K/uL (0.01-0.20); Immature Granulocytes % (auto) 0.4 %; Lymphocytes # (auto) 1.24 K/uL (1.20-3.40); Lymphocytes % (auto) 8.9 %; Mean Corpuscular Hemoglobin 29.6 pg (25.0-34.0); Mean Corpuscular Hgb Conc 34.5 g/dL (32.0-36.0); Mean Corpuscular Volume 85.8 fL (80.0-100.0); Mean Platelet Volume 10.4 fL (9.4-12.4); Monocytes # (auto) 0.63 K/uL (0.11-0.59); Monocytes % (auto) 4.5 %; Neutrophils # (auto) 12.03 K/uL (1.40-6.50); Neutrophils % (auto) 85.9 %; Platelet Count 225 K/uL (130-400); RDW Coefficient of Variation 11.6 % (11.5-14.5); RDW Standard Deviation 36.3 fL (36.4-46.3); Red Blood Count 4.93 M/uL (4.70-6.10); White Blood Count 13.99 K/ul (4.8-10.8)
--- NOTE | 2024-07-21 17:12 | Emergency Department Note ---
Impression & Plan Appendicitis, acute, with generalized peritonitis, Renal mass ED Provider Note CHIEF COMPLAINT: Abdominal pain started this morning HISTORY OF PRESENT ILLNESS: This 44-year-old male patient presents to the emergency department via private vehicle for evaluation of abdominal pain. Patient states the pain started at 6 or 7 AM. He states that he did have a bowel movement earlier but feels that it was a smaller quantity than usual. Patient denies any associated urinary symptoms. He states the pain is diffuse throughout his lower abdomen and radiates into the bilateral back. The patient denies any fever or chills. No nausea or vomiting. No diarrhea. No history of similar symptoms. He did not take any medication for his symptoms. Patient denies any contacts with similar symptoms that he is aware of. REVIEW OF SYSTEMS: A 10 system review of systems was performed with positives and pertinent negatives listed in the history of present illness. All other systems were reviewed and are negative. ALLERGIES: NKDA PHYSICAL EXAM: VITALS: Vitals are noted on the nurse's note and reviewed by myself. Vital signs stable. GENERAL: This is a 44-year-old male, in no acute distress, nondiaphoretic, well- developed well-nourished. SKIN: The skin was without rashes, erythema, edema, or bruising. There is no tenting of the skin. Capillary refill less than 2 seconds. HEAD: Normocephalic atraumatic. EYES: Conjunctivae without injection, sclerae without icterus. NECK: Supple without nuchal rigidity. No lymphadenopathy. No JVD. HEART: Regular rate and rhythm without murmurs gallops or rubs. LUNGS: Clear to auscultation bilaterally without wheezes, rales or rhonchi. No retractions or accessory muscle use. ABDOMEN: Positive bowel sounds x 4. Lower abdominal tenderness to palpation. Abdomen otherwise soft, nontender, without masses or organomegaly. Walker sign negative. No guarding or rebound tenderness. MUSCULOSKELETAL: No muscle atrophy, erythema, or edema noted. Full range of motion without joint tenderness in all extremities. No tenderness to palpation. Normal gait. Strength 5/5 throughout. NEURO: Patient was alert and oriented to person place and time. No focal neurological deficits. An order was placed for continuous youth nutritional monitor. The monitor showed a normal sinus rhythm at a ventricular rate of 76 bpm, per my interpretation. Imaging as interpreted by myself and the radiologist revealed acute appendicitis as well as incidental finding of left renal mass concerning for renal cell carcinoma, with radiologist interpretation as above. I agree with the radiologist's findings as based upon my independent interpretation. EMERGENCY DEPARTMENT COURSE: The patient was seen and evaluated as above. The patient presents with abdominal pain which started this morning. He is afebrile. He has had decreased appetite. His pain has been generalized, but seems to be localizing more to the right lower quadrant. IV access was obtained, labs were drawn. The patient was hydrated with IV fluids and medicated with Toradol. CT imaging was completed and was reviewed by myself and radiologist as noted. This was concerning for acute appendicitis. Incidentally, a renal mass was identified and is concerning for renal cell carcinoma. Labs were reviewed. There was a leukocytosis of 14,000. No anemia or thrombocytopenia. Renal, hepatic function and electrolytes without significant abnormality. Lipase is 16. Urinalysis was not collected. I discussed the findings with the patient and his at bedside. They are provided with a copy of the CT report which indicated a renal mass concerning for renal cell carcinoma. They were advised to follow-up as an outpatient with urology regarding this finding. I discussed the case with Dr. Summers, general surgeon on-call. He did agree to take the patient to the operating room and did request that urology be consulted regarding the renal mass. I discussed the case with Dr. Garcia, urologist on-call. He notes that the renal mass can be followed up as an outpatient, no acute treatment at this time. Dr. Summers was updated regarding the recommendation from urology for outpatient follow-up. I discussed the case with the merchandising manager who did agree to place a call back for tomorrow to ensure the patient is able to establish outpatient follow-up with urology in a timely manner. The patient was taken to the operating room. Please see surgery dictation regarding ongoing management and final disposition of this patient. Case was discussed with the attending physician. This visit is during a period of high volume and high acuity in the emergency department. I attest that I have personally reviewed the patient medication list. I attest that I have reviewed the patient's blood pressure and it was found to be elevated. GCS: 15 In the evaluation and treatment of this patient the following differential diagnoses were entertained: appendicitis, diverticulitis, obstruction, inflammatory bowel disease, renal colic, PUD, biliary pathology, pancreatitis, mesenteric ischemia, aortic pathology, infections, genitourinary, UTI, perforated viscus, as well as others were entertained. The chart was completed utilizing [employer] voice recognition software. Grammatical errors, random word insertions, pronoun errors, and incomplete sentences are an occasional consequence of this system due to software limitations, ambient noise, and hardware issues. Any formal questions or concerns about the content, text, or information contained within the body of this dictation should be directly addressed to the provider for clarification. Past Med/Surg History Problem List (Updated 07/22/24 @ 00:55 by Marzena Toledo PA-C) Renal mass (Acute) Appendicitis, acute, with generalized peritonitis (Acute) Back pain Medical History Lumbar disc herniation with radiculopathy HNP (herniated nucleus pulposus), lumbar Social History Smoking Status: Never smoker Tobacco Type: Smokeless Tobacco (Dip or Chew) Second Hand Exposure: No; Do You Dip or Chew Tobacco: Yes; Tobacco Cessation Education Requested by Patient: No Hx Alcohol Use: Yes Hx Substance Use: No Preferred Language: Korean Communication Ability: Effective Detasseler Required: No Beliefs That Will Affect Care: None Current Living Situation: Alone Other Information That Helps Us Care for You: No Feels Safe at Home: Yes Safety Concerns: Feels Safe At This Time Assistive Devices: Glasses Assistive Devices Comment: Has glasses at home-does not use them Allergies Allergies Allergy/AdvReac Type Severity Reaction Status Date / Time No Known Allergies Allergy Unverified 07/21/24 17:51 Home Meds Home Medications Medication Instructions Recorded Confirmed escitalopram oxalate 10 mg tablet 10 mg PO DAILY 07/21/24 07/21/24 Results & Data (ED) Vital Signs Vital Signs - 24 hr 07/21/24 16:02 07/21/24 17:07 07/21/24 17:18 Temperature 37.1 C Temperature Source Temporal Artery Scan Pulse Rate 75 76 74 Pulse Rate [Left Finger] Pulse Rate from SpO2 Sensor 76 Pulse Rhythm [Left Finger] Pulse Strength [Left Finger] Respiratory Rate 18 13 Respiratory Effort / Characteristics Non-Labored Spontaneous Respiratory Depth Normal Respiratory Pattern Regular Blood Pressure 147/82 H Blood Pressure [Left Arm] Blood Pressure Mean 103 Blood Pressure Mean [Left Arm] Blood Pressure Position [Left Arm] Pulse Oximetry 98 99 Oxygen Delivery Method Room Air Sepsis Recent Fever Within 48 Hours No Sepsis New/Unexplained Change in Mental Status No Sepsis Action Taken by Nursing No Action Required 07/21/24 17:30 07/21/24 18:03 07/21/24 18:33 Temperature Temperature Source Pulse Rate 94 H 71 79 Pulse Rate [Left Finger] Pulse Rate from SpO2 Sensor 71 Pulse Rhythm [Left Finger] Pulse Strength [Left Finger] Respiratory Rate 19 17 18 Respiratory Effort / Characteristics Respiratory Depth Respiratory Pattern Blood Pressure Blood Pressure [Left Arm] Blood Pressure Mean Blood Pressure Mean [Left Arm] Blood Pressure Position [Left Arm] Pulse Oximetry 100 Oxygen Delivery Method Sepsis Recent Fever Within 48 Hours Sepsis New/Unexplained Change in Mental Status Sepsis Action Taken by Nursing 07/21/24 19:02 Temperature 37.1 C Temperature Source Oral Pulse Rate Pulse Rate [Left Finger] 86 Pulse Rate from SpO2 Sensor Pulse Rhythm [Left Finger] Regular Pulse Strength [Left Finger] Normal Respiratory Rate 16 Respiratory Effort / Characteristics Non-Labored Respiratory Depth Normal Respiratory Pattern Regular Blood Pressure Blood Pressure [Left Arm] 139/72 Blood Pressure Mean Blood Pressure Mean [Left Arm] 94 Blood Pressure Position [Left Arm] Lying Pulse Oximetry 98 Oxygen Delivery Method Room Air Sepsis Recent Fever Within 48 Hours Sepsis New/Unexplained Change in Mental Status Sepsis Action Taken by Nursing Laboratory Data 07/21/24 16:36 07/21/24 16:36 Lab Results 07/21/24 Range/Units 16:36 WBC 13.99 H (4.8-10.8) K/ul RBC 4.93 (4.70-6.10) M/uL Hgb 14.6 (14.0-18.0) g/dl Hct 42.3 (42.0-52.0) % MCV 85.8 (80.0-100.0) fL MCH 29.6 (25.0-34.0) pg MCHC 34.5 (32.0-36.0) g/dL RDW Std Deviation 36.3 L (36.4-46.3) fL RDW Coeff of Romi 11.6 (11.5-14.5) % Plt Count 225 (130-400) K/uL MPV 10.4 (9.4-12.4) fL Immature Gran % (Auto) 0.4 % Neut % (Auto) 85.9 % Lymph % (Auto) 8.9 % Elbert % (Auto) 4.5 % Eos % (Auto) 0.1 % Baso % (Auto) 0.2 % Neut # (Auto) 12.03 H (1.40-6.50) K/uL Lymph # (Auto) 1.24 (1.20-3.40) K/uL Elbert # (Auto) 0.63 H (0.11-0.59) K/uL Eos # (Auto) 0.01 (0.00-0.50) K/uL Baso # (Auto) 0.03 (0.00-0.20) K/uL Immature Gran # (Auto) 0.05 (0.01-0.20) K/uL Sodium 138 (136-145) mmol/L Potassium 4.1 (3.5-5.1) mmol/L Chloride 102 (98-107) mmol/L Carbon Dioxide 26 (21-32) mmol/L Anion Gap 10 (3-11) BUN 16 (6-23) mg/dl Creatinine 0.82 (0.6-1.4) mg/dl Est Cr Clr Drug Dosing 103.7 ml/min Est GFR ( Amer) 126.4 ml/min Est GFR (Non-Af Amer) 109.1 ml/min BUN/Creatinine Ratio 19.5 (10-20) Glucose 95 (70-99(Fasting)) mg/dl Calcium 9.9 (8.6-10.3) mg/dl Total Bilirubin 1.0 (0.2-1.0) mg/dl AST 96 H (13-39) U/L ALT 25 (7-52) U/L Alkaline Phosphatase 56 (34-104) U/L Total Protein 8.1 (6.0-8.3) gm/dl Albumin 5.1 H (3.4-5.0) gm/dl Globulin 3.0 (2.5-4.0) gm/dl Albumin/Globulin Ratio 1.7 (0.9-2) Lipase 16 (11-82) U/L Administered Medications Acetaminophen (Acetaminophen 325 Mg Tab) 650 mg PO Q6H PRN PRN Reason: Pain & Pre PT Stop: 08/20/24 21:25 Last Admin: 07/21/24 21:40 Dose: 650 mg Documented By: ELBA Lactated Ringer's (Lr) 1,000 mls @ 100 mls/hr IV .Q10H KATHRYN Stop: 08/20/24 21:25 Last Admin: 07/21/24 21:42 Dose: 100 mls/hr Documented By: ELBA Oxycodone/Acetaminophen (Oxycodone/Acetaminophen 5mg/325mg Tab) 1 tab PO Q4H PRN PRN Reason: MODERATE Pain (4,5,6) & Pre PT Stop: 08/04/24 21:25 Last Admin: 07/22/24 00:46 Dose: 1 tab Documented By: ELBA Discontinued Medications Bupivacaine HCl/Epinephrine Bitart (Bupivacaine/Epinephrine 0.5% Mpf 1:200,000 30 Ml Vial) Confirm Administered Dose 30 ml .ROUTE .STK-MED ONE Stop: 07/21/24 18:42 Last Admin: 07/21/24 20:03 Dose: 20 ml Documented By: MARINA Sodium Chloride (Nss) 500 mls @ 999 mls/hr IV .Q31M STA Stop: 07/21/24 16:37 Last Infusion: 07/21/24 21:33 Dose: Infused Documented By: Admin: 07/21/24 16:39 Dose: 999 mls/hr Documented By: LILLIAN Sodium Chloride (Nss) 1,000 mls @ 999 mls/hr IV .Q1H1M ONE Stop: 07/21/24 18:04 Last Infusion: 07/21/24 21:33 Dose: Infused Documented By: Admin: 07/21/24 18:09 Dose: 999 mls/hr Documented By: PAM Cefoxitin Sodium 2,000 mg/ (Dextrose) 50 mls @ 120 mls/hr IV PREOP@1945 [facility] Stop: 07/21/24 20:09 Last Infusion: 07/21/24 21:32 Dose: Infused Documented By: Admin: 07/21/24 19:49 Dose: 120 mls/hr Documented By: CAMACHO Ioversol (Optiray 320 100ml) 90 ml IV ONCE ONE Stop: 07/21/24 17:39 Last Admin: 07/21/24 17:38 Dose: 90 ml Documented By: PARKER Ketorolac Tromethamine (Ketorolac Tromethamine 15 Mg/Ml Vial) 15 mg IV NOW STA Stop: 07/21/24 17:05 Last Admin: 07/21/24 18:09 Dose: 15 mg Documented By: PAM Imaging Data Radiologist's Impression: Abdomen/Pelvis CT 07/21/24 16:[address] WITH IV CONTRAST CT DOSE: 829.39 mGy.cm HISTORY: Acute bilateral flank pain vance abd/flank pain TECHNIQUE: Multiaxial CT images of the abdomen and pelvis were performed following the IV administration of 90 cc of Optiray, A dose lowering technique was utilized adhering to the principles of ALARA. COMPARISON STUDY: Lumbar spine MRI 12/05/2017. FINDINGS: The lung bases are clear. The liver, spleen, gallbladder, pancreas, and adrenal glands are within normal limits. Heterogeneous mass of the superior pole left kidney measures 2.5 x 2.7 cm image 107 series 3 which appears to be solid with enhancement. The kidneys are otherwise unremarkable. No hydronephrosis. Urinary bladder wall thickening with partial distention. No pathologically enlarged lymph nodes. Partial distention of the rectum with wall thickening. No bowel obstruction. 9 mm appendicolith within the proximal appendix. The appendix is dilated and filled measuring up to 12 mm with wall thickening and mucosal hyperemia. Adjacent inflammatory stranding without abscess. Moderate L5-S1 intervertebral disc space narrowing with posterior disc osteophyte complex. No suspicious lytic or blastic osseous lesions. IMPRESSION: 1. Acute appendicitis with 9 mm appendicolith. 2. No bowel obstruction, pneumoperitoneum or abscess. 3. 2.7 cm left renal mass suspicious for renal cell carcinoma. Correlation with nonemergent follow-up MRI of the abdomen recommended along with urology consultation. ACT 112: Positive. There are findings on this exam that require communication between the performing entity and the patient following Patient Test Result Information Act ([place] Act 112) guidelines. The above report was generated using voice recognition software. It may contain grammatical, syntax or spelling errors. Electronically signed by: Roosevelt Kumar M.D. 07/21/2024 6:09 PM Discharge Plan Visit Data Chief Complaint: Abdominal Pain Stated Complaint: SEVERE ABD PAIN ED Provider: Ann Calvo ED Midlevel Provider: Marzena Toledo Discharge Problem: Appendicitis, acute, with generalized peritonitis, Renal mass Patient Disposition: Admitted As Inpatient Discharge Instructions Interventions: ED Discharge Assessment Last Done: 07/21/24 18:59
[2024-07-21 17:24] LABS: Albumin Globulin Ratio 1.7 (0.9-2); Albumin Level 5.1 gm/dl (3.4-5.0); BUN Creatinine Ratio 19.5 (10-20); Calcium 9.9 mg/dl (8.6-10.3); Creatinine Clr Calc Pharmacy 103.7 ml/min; Est GFR (African American) 126.4 ml/min; Est GFR (Non-African American) 109.1 ml/min; Potassium 4.1 mmol/L (3.5-5.1); Total Protein 8.1 gm/dl (6.0-8.3)
[2024-07-21] MEDS: OPTIRAY 320 100ml IV ONE (17:38)
[2024-07-21] MEDS: SODIUM CHLORIDE 0.9% 1,000 ML IV ONE (18:09)
[2024-07-21] MEDS: KETOROLAC TROMETHAMINE 15 MG/ML VIAL IV STA (18:09)
--- NOTE | 2024-07-21 18:11 | CT Scan Report ---
ABDOMEN AND PELVIS CT WITH IV CONTRAST CT DOSE: 829.39 mGy.cm HISTORY: Acute bilateral flank pain vance abd/flank pain TECHNIQUE: Multiaxial CT images of the abdomen and pelvis were performed following the IV administrat ion of 90 cc of Optiray, A dose lowering technique was utilized adhering to the principles of ALARA. COMPARISON STUDY: Lumbar spine MRI 12/05/2017. FINDINGS: The lung bases are clear. The liver, spleen, gallbladder, pancreas, and adrenal glands are within normal limits. Heterogeneous mass of the superior pole left kidney measures 2.5 x 2.7 cm image 107 series 3 which appears to be solid with enhancement. The kidneys are otherwise unremarkable. No hydronephrosis. Urinary bladder wall thickening with partial distention. No pathologically enlarged l ymph nodes. Partial distention of the rectum with wall thickening. No bowel obstruction. 9 mm appendicolith withi n the proximal appendix. The appendix is dilated and filled measuring up to 12 mm with wall thickenin g and mucosal hyperemia. Adjacent inflammatory stranding without abscess. Moderate L5-S1 intervertebr al disc space narrowing with posterior disc osteophyte complex. No suspicious lytic or blastic osseou s lesions. IMPRESSION: 1. Acute appendicitis with 9 mm appendicolith. 2. No bowel obstruction, pneumoperitoneum or abscess. 3. 2.7 cm left renal mass suspicious for renal cell carcinoma. Correlation with nonemergent follow-up MRI of the abdomen recommended along with urology consultation. ACT 112: Positive. There are findings on this exam that require communication between the performing entity and the patient following Patient Test Result Information Act ([place] Act 112) guidelines. The above report was generated using voice recognition software. It may contain grammatical, syntax o r spelling errors. Electronically signed by: Roosevelt Kumar M.D. 07/21/2024 6:09 PM
[2024-07-21] MEDS ORDERED: fentaNYL citrate PF 100 MCG/2 ML VIAL ONE (18:54)
[2024-07-21] MEDS ORDERED: MIDAZOLAM HCL 1 MG/ML 2ML VIAL ONE (18:54)
[2024-07-21] MEDS ORDERED: SUCCINYLCHOLINE CHLORIDE 20 MG/ML 10 ML VIAL IV ONE (18:55)
[2024-07-21] MEDS ORDERED: DEXAMETHASONE SOD INJ 4 MG/ML VIAL ONE (18:55)
[2024-07-21] MEDS ORDERED: ONDANSETRON INJ 2 MG/ML 2 ML VIAL ONE (18:55)
[2024-07-21] MEDS ORDERED: LIDOCAINE 2% 2 ML VIAL/AMP(20MG/ML) INFIL ONE (18:55)
[2024-07-21] MEDS ORDERED: ROCURONIUM BROMIDE 10 MG/ML 5 ML VIAL IV ONE (18:55)
[2024-07-21] MEDS ORDERED: PROPOFOL IV EMULSION 10 MG/ML 20 ML VIAL IV ONE (18:55)
--- NOTE | 2024-07-21 19:12 | Anesthesiology Consultation ---
Date of Service July 21, 2024 Assessment & Plan Chart Review Chart Review: Acceptable Risk for Surgery Consults Requested none History Surgery Operation Date: 07/21/24 18:50 Proposed Procedures p Laparoscopic Appendectomy - Adam Summers MD Height/Weight Height: 5 ft Weight: 81.2 kg Allergies Allergy/AdvReac Type Severity Reaction Status Date / Time No Known Allergies Allergy Unverified 07/21/24 17:51 Medications Home Medications Medication Instructions Recorded Confirmed Last Taken escitalopram oxalate 10 mg tablet 10 mg PO DAILY 07/21/24 07/21/24 Unknown NPO Date Last Intake of Fluids: 07/21/24 Time Last Intake of Fluids: 14:00 Date Last Intake of Solids: 07/21/24 Time Last Intake of Solids: 12:00 Past Medical History Medical History Lumbar disc herniation with radiculopathy HNP (herniated nucleus pulposus), lumbar Social History Smoking Status: Never smoker Physical Exam Vital Signs Last Vital Signs Temp 37.1 C 07/21/24 19:02 Pulse 86 07/21/24 19:02 Resp 16 07/21/24 19:02 BP 139/72 07/21/24 19:02 Pulse Ox 98 07/21/24 19:02 O2 Del Method Room Air 07/21/24 19:02 Testing Laboratory Results 07/21/24 16:36 07/21/24 16:36
[2024-07-21] MEDS ORDERED: ATROPINE SULFATE 0.1 MG/ML 10ML SYR IV PRN (19:13)
[2024-07-21] MEDS ORDERED: ONDANSETRON INJ 2 MG/ML 2 ML VIAL IV PRN ×2 (19:13→21:26)
[2024-07-21] MEDS ORDERED: fentaNYL citrate PF 100 MCG/2 ML VIAL IV PRN (19:13)
[2024-07-21] MEDS ORDERED: HYDROmorphone INJ 2 MG/ML SYR/VIAL IV PRN (19:13)
[2024-07-21] MEDS ORDERED: PROMETHAZINE HCL 6.25 MG in SODIUM CHLORIDE 0.9% 50 ML IV PRN (19:13)
[2024-07-21] MEDS ORDERED: ePHEDrine sulfate 50 MG/ML AMP IV PRN (19:13)
[2024-07-21] MEDS ORDERED: cefOXitin 2,000 MG in DEXTROSE 5 % MINI-B 50 ML IV STA (19:32)
--- NOTE | 2024-07-21 19:35 | History & Physical Report ---
Date of Service July 21, 2024 Assessment & Plan (1) Appendicitis, acute, with generalized peritonitis: Plan: IV abx IVF to OR for lap appy (2) Renal mass: Plan: Urology contacted outpatient F/U advised History of Present Illness Primary Care Provider: Parminder Florian MD This 44-year-old male patient presents to the emergency department with abdominal pain. The pain started this AM. The patient denies any fever or chills. No nausea or vomiting. No diarrhea. No history of similar symptoms. A CT scan shows acute appendicitis with fecalith. Allergies Allergy/AdvReac Type Severity Reaction Status Date / Time No Known Allergies Allergy Unverified 07/21/24 17:51 Home Medications Medication Instructions Recorded Confirmed Type escitalopram oxalate 10 mg tablet 10 mg PO DAILY 07/21/24 07/21/24 History Past Med/Surg History Problem List (Updated 07/21/24 @ 19:36 by Adam Summers MD) Renal mass Appendicitis, acute, with generalized peritonitis Back pain Medical History Lumbar disc herniation with radiculopathy HNP (herniated nucleus pulposus), lumbar Social History Smoking Status: Never smoker Preferred Language: Slovenian Feels Safe at Home: Yes Review of Systems + anorexia; no fever and no chills no problem reported no problem reported no cough and no dyspnea no chest pain + abdominal pain; no nausea, no vomiting and no change in bowel habits no dysuria + back pain no problem reported no localized weakness and no generalized weakness no behavioral changes no easy bleeding and no easy bruising Physical Exam Constitutional: WD/WN, vitals as above Eyes: PERRL, conjunctivae normal, anicteric sclerae ENMT: external ear and nose normal, oropharynx normal Neck: trachea midline Respiratory: normal respiratory effort, lungs clear to auscultation Cardiovascular: RRR, no murmur, no edema Gastrointestinal (Abdomen): Inspection/Auscultation: abdomen normal to inspection and normal bowel sounds; abdomen not distended Percussion/Palpation: + abdomen tender, + guarding and abdomen soft; abdomen not rigid Musculoskeletal: Head/Neck/Chest: normocephalic and head atraumatic Skin: no rashes, warm and dry Results & Data Vital Signs (Past 12 Hours) Vital Signs Temp Pulse Pulse Resp BP BP Pulse Ox 07/21/24 19:02 37.1 C 86 16 139/72 98 07/21/24 18:33 79 18 07/21/24 18:03 71 17 100 07/21/24 17:30 94 H 19 07/21/24 17:18 74 13 99 07/21/24 17:07 76 07/21/24 16:02 37.1 C 75 18 147/82 H 98 O2 Del Method 07/21/24 19:02 Room Air 07/21/24 18:33 07/21/24 18:03 07/21/24 17:30 07/21/24 17:18 07/21/24 17:07 07/21/24 16:02 Room Air Diagnostic Findings ABDOMEN AND PELVIS CT WITH IV CONTRAST CT DOSE: 829.39 mGy.cm HISTORY: Acute bilateral flank pain vance abd/flank pain TECHNIQUE: Multiaxial CT images of the abdomen and pelvis were performed following the IV administration of 90 cc of Optiray, A dose lowering technique was utilized adhering to the principles of ALARA. COMPARISON STUDY: Lumbar spine MRI 12/05/2017. FINDINGS: The lung bases are clear. The liver, spleen, gallbladder, pancreas, and adrenal glands are within normal limits. Heterogeneous mass of the superior pole left kidney measures 2.5 x 2.7 cm image 107 series 3 which appears to be solid with enhancement. The kidneys are otherwise unremarkable. No hydronephrosis. Urinary bladder wall thickening with partial distention. No pathologically enlarged lymph nodes. Partial distention of the rectum with wall thickening. No bowel obstruction. 9 mm appendicolith within the proximal appendix. The appendix is dilated and filled measuring up to 12 mm with wall thickening and mucosal hyperemia. Adjacent inflammatory stranding without abscess. Moderate L5-S1 intervertebral disc space narrowing with posterior disc osteophyte complex. No suspicious lytic or blastic osseous lesions. IMPRESSION: 1. Acute appendicitis with 9 mm appendicolith. 2. No bowel obstruction, pneumoperitoneum or abscess. 3. 2.7 cm left renal mass suspicious for renal cell carcinoma. Correlation with nonemergent follow-up MRI of the abdomen recommended along with urology consultation.
[2024-07-21] MEDS: cefOXitin 2,000 MG in DEXTROSE 5 % MINI-B 50 ML IV SCH (19:49)
[2024-07-21] MEDS ORDERED: HYDROmorphone INJ 2 MG/ML SYR/VIAL ONE (19:53)
[2024-07-21] MEDS ORDERED: SUGAMMADEX SODIUM 200 MG/2 ML VIAL IV ONE (20:01)
[2024-07-21] MEDS: BUPIVACAINE/EPINEPHRINE 0.5% MPF 1:200,000 30 ML VIAL ONE (20:03)
--- NOTE | 2024-07-21 20:13 | Operative Report ---
Post Operative Report Pre & Post Diagnosis Operation Date: 07/21/24 18:50 Acute appendicitis I identified the patient and participated in the time-out.: Yes Procedure Operation Date: 07/21/24 18:50 Laparoscopic appendectomy Surgeon Adam Summers MD Electro Mechanical Technologist None Estimated Blood Loss 10 Findings Consistent with Post-Op Diagnosis Specimens Appendix to pathology Drains None Anesthesia Type General Complications none Disposition Accompanied Patient To Recovery: No Indications This is a 42-year-old male admitted to the ED with workup for abdominal pain. CT scan showed acute appendicitis. He also had a renal mass which urology was consulted will see him as an outpatient. We discussed the surgery in detail. We also discussed all the risks in detail. He wishes to proceed. Description of Procedure The patient was taken to the OR and underwent excellent general anesthesia. Their abdomen was prepped and draped in normal sterile fashion. A transverse supraumbilical incision was made, towel clamps were used to create tension on the abdominal wall as a Veress needle was inserted gently into the peritoneal cavity. Good pneumoperitoneum was achieved to about 15 mmHg pressure. Once this was done, a visualized 11 port was placed in the supraumbilical position. A 12 mm left lower quadrant port , a 5mm suprapubic port , and a 5mm right upper quadrant port were placed in normal fashion. Patient was then placed in head down and rolled to the left. A good diagnostic lap was performed. They had obvious acute appendicitis with a fecalith.. The cecum was grasped with an atraumatic grasper. A grasper was then was then used to grasp the tip of the appendix. The mesoappendix was splayed open and a harmonic scalpel was used to take down the mesoappendix. The base of the appendix was identified and an Endo ANDREAS stapler was used to transect the appendix at its base. A Endobag was then inserted through the left lower quadrant port and the appendix was placed into the bag, The bag was removed through the left lower quadrant port. The appendix was then sent for pathologic evaluation. Pneumoperitoneum was re- established and the 12 mm port was replaced. Saline was then used to irrigate the abdomen. There was no active bleeding nor any other abnormalities noted in the abdomen. Patient was then placed back in neutral position, the ports were removed and the pneumoperitoneum decompressed. The 12mm port fascia was then closed using a 0 Vicryl. The skin was then anesthetized with 0.5% Marcaine with epinephrine local. Interrupted Vicryl is used to close the skin. Dermabond was used to reinforce the incisions. Sterile dressings were applied. The patient tolerated procedure without complications was sent to the postop recovery period of observation. They will be sent to the floor for the rest of their care. I attest to the content of the Intraoperative Record and any orders documented therein. Any exceptions are noted below.
[2024-07-21] MEDS ORDERED: MoRPHine SULFATE 4 MG/ML 1 ML CARP\\VIAL IV PRN (21:26)
[2024-07-21] MEDS ORDERED: oxyCODONE/ACETAMINOPHEN 5mg/325mg TAB PO PRN (21:26)
[2024-07-21] MEDS ORDERED: MoRPHine SULFATE 2 MG/ML CARP IV PRN (21:26)
[2024-07-21] MEDS ORDERED: PROMETHAZINE 25 MG/51 ML BAG IV PRN (21:26)
[2024-07-21] MEDS: ACETAMINOPHEN 325 MG TAB PO PRN (21:40)
[2024-07-21] MEDS: LACTATED RINGER'S 1,000 ML IV SCH (21:42)
--- NOTE | 2024-07-21 22:14 | Anesthesiology Progress Note ---
Date of Service July 21, 2024 Anesthesia Post Procedure Vital Signs Vital Signs: Temp Pulse Pulse Pulse Resp BP BP 07/21/24 21:17 37.3 C 82 17 116/73 07/21/24 21:05 86 12 118/69 07/21/24 20:55 75 16 124/68 07/21/24 20:45 36.6 C 80 12 127/72 07/21/24 20:35 82 16 125/76 07/21/24 20:25 84 12 134/75 07/21/24 20:18 36.8 C 105 H 20 137/74 07/21/24 19:02 37.1 C 86 16 139/72 07/21/24 18:33 79 18 07/21/24 18:03 71 17 07/21/24 17:30 94 H 19 07/21/24 17:18 74 13 07/21/24 17:07 76 07/21/24 16:02 37.1 C 75 18 147/82 H Pulse Ox O2 Del Method O2 Flow Rate 07/21/24 21:17 98 Room Air 2 07/21/24 21:05 98 Nasal Cannula 2 07/21/24 20:55 98 Nasal Cannula 2 07/21/24 20:45 97 Nasal Cannula 2 07/21/24 20:35 98 Nasal Cannula 2 07/21/24 20:25 98 Nasal Cannula 2 07/21/24 20:18 95 Room Air 07/21/24 19:02 98 Room Air 07/21/24 18:33 07/21/24 18:03 100 07/21/24 17:30 07/21/24 17:18 99 07/21/24 17:07 07/21/24 16:02 98 Room Air Transfer of Care Handoff Completed per policy Notes Mental Status: alert / awake / arousable and participated in evaluation Patient Amnestic to Procedure: Yes Nausea / Vomiting: adequately controlled Pain: adequately controlled Airway Patency, RR, SpO2: stable & adequate BP & HR: stable & adequate Hydration State: stable & adequate Anesthetic Complications: no major complications apparent
[2024-07-22] MEDS: oxyCODONE/ACETAMINOPHEN 5mg/325mg TAB PO PRN (00:46)
[2024-07-22] MEDS: cefOXitin 2,000 MG in DEXTROSE 5 % MINI-B 50 ML IV SCH (01:32)
[2024-07-22 03:35] LABS: Appearance Urine Clear (Clear); Bilirubin Urine Negative (Negative); Blood Urine Negative (Negative); Color Urine Yellow; Glucose Urine UA Negative (Negative); Ketones Urine Trace (Negative); Leukocyte Esterase Urine Negative (Negative); Nitrite Urine Negative (Negative); Protein Urine Negative (Negative); Specific Gravity Urine 1.042 (1.000-1.030); Urobilinogen Urine Negative (Negative); pH Urine 6.5 (4.5-7.5)
--- OUTSIDE RECORDS SUMMARY | 2024-07-22 05:44 | External Medical Summary | Summary of Care ---
Author Name Unknown Organization [facility] Address [address] [place] [place] [address] Phone [phone] Care Team Providers Care Nursing Officer Name Role Phone Parminder Florian MD Primary Care Provider [phone] Reason for Visit * Reason Comments Acute Patient is here toda y for back pain. States the pain starts in the left buttock that goes down the back of leg. Patient has taken ibuprofen for it and has experienced some relief. Patient states the pain is worse when he is active.Patient had back surgery in 2017 and would like to be sure it's not something he would need surgery for again. Encounter Details Date Type Department Care Team (Late st Contact Info) Description 06/18/2024 3:00 PM EDT Office Visit [facility] [address] [place] [address] Parminder Florian MD [address] [place] [address] Lumbar radiculopathy* Allergies No known active allergiesdocumented as of this encounter (statuses as of 06/18/2024) Medications Medication Sig Dispensed Refills Start Date End Date Status Propranolol HCl 10 MG Oral Tablet (Inderal)Indications :KIERA (generalized anxiety disorder) Take 1 Tablet by mouth 3 times a day as needed for Agitation (anxiety). 20 Tablet 5 04/05/2024 Active Escitalopram Oxalate 10 MG Oral Tablet (Lexapro) 1/2 tab daily for 1st 7 days then 1 daily 30 Tablet 5 04/05/2024 Active Tadalafil 20 MG Oral Tablet (Cialis)Indications: Erectile dysfunction, unspecified erectile dysfunction type Take 1 Tablet by mouth daily as needed for Erectile Dysfunction. 30 Tablet 05/13/2024 Active documented as of this encounter (statuses as of 06/18/2024) Active Problems Problem Noted Date Diagnosed Date Herpes simplex type 1 infection 12/31/2022 Skin lesion of right ear 12/07/2021 DDD (degenerative disc disease), lumbar 10/14/20 17 Screening for lipid disorders 11/15/2013 Chews tobacco 10/09/2012 documented as of this encounter (statuses as of 06/18/2024) Resolved Problems Problem Noted Date Diagnosed Date Resolved Date History of dental abscess 09/01/2019 Right epididymitis 12/30/2014 7 Other general medical examin ation for administrative purposes 11/15/2013 10/14/2017 Costochondral pain 09/10/2013 7 Overview: left Neoplasm of uncertain behavior of skin 10/09/2012 10/14/2017 Overview: left lower abdomen ACUTE PHARYNGITIS 05/30/2004 12/22/2008 Overview: Resolved per Benign Acute Dxs Protocol #3 Allergic rhinitis 05/30/2004 10/09/2012 Unspecified viral infection, in conditions classified elsewhere and of unspecified site 05/30/2004 10/09/2012 Headache 05/30/2004 10/09/2012 Overview: ICD-10 update of inactive term DENTAL INFECTION 12/01/2002 05/30/2004 TOOTH ERUPTION DISTURB 12/01/200205/30 Infectious mononucleosis 06/23/200001/2004 NO SIGNIFICANT MED HX 2016 documented as of this encounter (statuses as of 06/18/2024) Immunizations Name Administration Dates Next Due TDAP, Age 7 and older, IM (Adacel) 05/28/2011 documented as of this encounter Social History Tobacco Use Types Packs/Day Years Used Date Smoking Tobacco: Never Smokeless Tobacco: Current Chew Comments:began at age 20 2 c ans per week Alcohol Use Standard Drinks/Week Comments Yes 0 (1 standard drink = 0.6 oz pur e alcohol) twice per week PHQ-2 Answer Date Recorded PHQ Adult Total Score 19 02/20/2024 Hunger Vital Sign Answer Date Recorded Worried About Running Out of Food in the Last Ye ar Never true 09/21/2019 Ran Out of Food in the Last Year Never true 09/21/2019 Utilities Answer Date Recorded Do you have trouble paying y our heating, water, or electric bill? (Adult - for ages 18 years and over) Not on file 04/13/2024 Is your family able to pay t he heat, water, or electric bill? (Household - for ages 0-17 years) Not on file 04/13/2024 Does your family have access to good internet? (Household - for ages 0-17 years) Not on file 04/13/2024 Social Connections Answer Date Recorded How often do you feel lonely or isolated from those around you? (Adult - for ages 18 years and over) Not on file 04/13/2024 Sex and Gender Information Value Date Recorded Sex Assigned at Male 10/14/2019 2:03 PM EST Gender Identity Male 10/14/2019 2:03 PM EST Sexual Orientation Straight 09/21/2019 7: 30 AM EST Job Start Date Occupation Industry Not on file Not on file Not on file documented as of this encounter Last Filed Vital Signs Vital Sign Reading Time Taken Comments Blood Pressure 112/68 06/18/2024 3:02 PM EDT Pulse 60 06/18/2024 3:02 PM EDT Temperature 36.4 C (97.5 F) 06/18/2024 3:02 PM ED T Respiratory Rate 16 06/18/2024 3:02 PM EDT Oxygen Saturation 95% 06/18/2024 3:02 PM EDT Inhaled Oxygen Concentration - - Weight 81.5 kg (179 lb 9.6 oz) 06/18/2024 3:02 P M EDT Height 182.9 cm (6') 06/18/2024 3:02 PM EDT Body Mass Index 24.36 06/18/2024 3:02 PM EDT documented in this encounter Progress Notes * Parminder Florian MD - 06/18/2024 4:32 PM EDT Subjective: Yifan Yoo is a 44 year old male. Chief Complaint Patient presents with Acute Patient is here today for back pain. States the pain starts in the left buttock that goes down the back of leg. Patient has taken ibuprofen for it and has experienced some relief. Patient states the pain is worse when he is active. Patient had back surgery in 2017 and would like to be sure it's not something he would need surgeryfor again. HPI: 44-year-old who had herniated disc surgery left lumbar area about 7 years ago. Seen today withproximally 1 week history of pain primarily isolated in the left buttocks region. He had felt a little bit of tightness in his low back a couple days before onset of pain. He lifted a box of heavy weights in did not realize how heavy it was the day before the onset of pain. He does not have any loss of stool or urine incontinence. Does not have any pain radiating down the leg. Does not have any weakness of the leg. He questions whether he might have hamstring pull Patient Active Problem List Diagnosis Chews tobacco Screening for lipid disorders DDD (degenerative disc disease), lumbar Skin lesion of right ear Herpes simplex type 1 infection Current Outpatient Medications Medication Sig Dispense Refill Escitalopram Oxalate 10 MG Oral Tablet (Lexapro) 1/2 tab daily for 1st 7 days then 1 daily 30 Tablet 5 Tadalafil 20 MG Oral Tablet (Cialis) Take 1 Tablet by mouth daily as needed for Erectile Dysfunction. 30 Tablet 0 Propranolol HCl 10 MG Oral Tablet (Inderal) Take 1 Tablet by mouth 3 times a day as needed for Agitation (anxiety). 20 Tablet 5 No current facility-administered medications for this visit. Review of patient's allergies indicates: No Known Allergies Objective: BP 112/68 | Pulse 60 | Temp 36.4 C (97.5 F) (Tympanic) | Resp 16 | Ht 1.829 m (6') | Wt 81.5 kg(179 lb 9.6 oz) | SpO2 95% | BMI 24.36 kg/m | BSA 2.03 m Physical Exam: CONST: alert, pleasant, no acute distress HEAD: normocephalic, atraumatic MENTAL STATUS: no evidence of thought disorder, no delusional thought, no evidence of paranoia, thought is non-tangential. SKIN: no rash or significant lesions Back: There was no tenderness midline lumbar spine nor the left paraspinal muscles. There was no pain upon deep palpation at the sciatic notch. He is able to step up in his toes as well as his heels.Straight leg raise test is negative on the right and positive on the left. New line I saw no ecchymotic area in the left posterior proximal thigh nor mid thigh ASSESSMENT/PLAN: Left buttocks pain-I suspect this is lumbar radicular in etiology but there still has a possibilitythat is a proximal hamstring Um pull. For now he prefers not to be on medication. I was going to prescribe a course of prednisone but Um he turned that down. I recommended that if his symptoms persist in especially if they get a worse or pain radiating further down the leg, he ought to do a course of physical therapy with then plan to get MRI imaging of the area. I think it is reasonable though to approach conservatively at this point Um just using ice or heat to the area and see what happens over the next few days. Parminder Florian MD documented in this encounter Nursing Notes * Leigha Burrell MED ASSIST - 06/18/2024 3:05 PM EDT The patient has been properly identified by confirmation of name and date of . Chief Complaint Patient presents with Acute Patient is here today for back pain. States the pain starts in the left buttock that goes down the back of leg. Patient has taken ibuprofen for it and has experienced some relief. Patient states the pain is worse when he is active. Patient had back surgery in 2017 and would like to be sure it's not something he would need surgeryfor again. documented in this encounter Plan of Treatment Health Maintenance Due Date Last Done Comments Hepatitis B Vaccine (1 of 3 - 19+ 3-dose series) 2001 DTaP,Tdap,and Td Vaccines (7 - Td or Tdap) 05/28/2021 05/28/2011, 06/26/1998, 07/05/1988, Additional history exists COVID-19 Vaccine (2022-24 season) 2023 Influenza Vaccine (FLU shot) (#1) 2024 Depression Monitoring 02/19/2025 02/20/2024, 024 Lipid Panel 10/03/2026 10/03/2021, 09/27, 10/12/2018, Additional history exists HPV (Gardasil) Vaccine Aged Out No lo nger eligible based on patient's age to complete this topic MENINGOCOCCAL (MENACTRA/MENVEO) Aged Out No longer eligible based on patient's age to complete this topic Pneumococcal Vaccine: Pediatrics (0 to 5 Years) and At-Risk Patients (6 to 64 Years) Aged Out No longer eligible based on patient's age to complete this topic documented as of this encounter Medical Devices Not on filedocumented as of this encounter Visit Diagnoses Diagnosis Lumbar radiculopathy- Primary Thoracic or lumbosacral neuritis or radiculitis, unspecified documented in this encounter Care Teams Nursing Officer Relationship Specialty Start Date End Date Parminder Florian MD [address] [place] [address] PCP - General 01/25/1999 documented as of this encounter"
--- OUTSIDE RECORDS SUMMARY | 2024-07-22 05:44 | External Medical Summary | Summary of Care ---
Author Name Unknown Organization [facility] Address [address] [facility] [place] [address] Phone [phone] Care Team Providers Care Steward/Stewardess Wine Name Role Phone Parminder Florian MD Primary Care Provider [phone] Encounter Details Date Type Department Care Team (Late st Contact Info) Description 05/18/2024 Orders Only PATIENT PORTAL DO NOT DELETE THIS DEPT USED BY [place] [id number] Allergies No known active allergiesdocumented as of this encounter (statuses as of 05/18/2024) Medications Medication Sig Dispensed Refills Start Date [...] as of this encounter (statuses as of 05/18/2024) Active Problems Problem Noted Date Diagnosed Date Herpes simplex type 1 infection 12/31/2022 Skin lesion of right ear 12/07/2021 DDD (degenerative disc disease), lumbar 10/14/20 17 Screening for lipid disorders 11/15/2013 Chews tobacco 10/09/2012 documented as of this encounter (statuses as of 05/18/2024) Resolved Problems Problem Noted Date Diagnosed Date [...] as of this encounter (statuses as of 05/18/2024) Immunizations Name Administration Dates Next Due TDAP, [...] on file documented as of this encounter Plan of Treatment Health Maintenance [...] Not on filedocumented as of this encounter Care Teams Steward/Stewardess Wine Relationship Specialty Start Date End Date Parminder Florian MD [address] [place] [address] PCP - General 01/25/1999 documented as of this encounter
--- OUTSIDE RECORDS SUMMARY | 2024-07-22 05:45 | External Medical Summary | Summary of Care ---
Author Name Unknown Organization [facility] Address [address] [place] [facility] [place] [address] Phone [phone] Care Team Providers Care Appian Bpm Developer Name Role Phone Heather Florian MD Primary Care Provider [phone] Reason for Visit * Reason Onset Date Comments Medication Refill 05/12/2024 Encounter Details Date Type Department Care Team (Late st Contact Info) Description 05/12/2024 Refill [facility] [address] [place] [address] Heather Florian MD [address] [place] [address] Encounter for long-term (current) use of other medications*; Erectile dysfunction, unspecified erectile dysfunction type Allergies No known active allergiesdocumented as of this encounter (statuses as of 05/13/2024) Medications Medication Sig Dispensed Refills Start Date End Date Status Propranolol HCl 10 MG Oral Tablet (Inderal)Indicati ons:KIERA (generalized anxiety disorder) Take 1 Tablet by mouth 3 times a day as needed for Agitation (anxiety). 20 Tablet 5 04/05/2024 Active Escitalopram Oxalate 10 MG Oral Tablet (Lexapro) 1/2 tab daily for 1st 7 days then 1 daily 30 Tablet 5 04/05/2024 Active Tadalafil 20 MG Oral Tablet (Cialis)Indicatio ns:Erectile dysfunction, unspecified erectile dysfunction type Take 1 Tablet by mouth daily as needed for Erectile Dysfunction. 30 Tablet 05/13/2024 Active Tadalafil 20 MG Oral Tablet (Cialis)Indicatio ns:Erectile dysfunction, unspecified erectile dysfunction type Take 1 Tablet by mouth daily as needed for Erectile Dysfunction. 30 Tablet 03/10/2024 05/12/2024 Discontinued (Refill) documented as of this encounter (statuses as of 05/13/2024) Active Problems Problem Noted Date Diagnosed Date Herpes simplex type 1 infection 12/31/2022 Skin lesion of right ear 12/07/2021 DDD (degenerative disc disease), lumbar 10/14/20 17 Screening for lipid disorders 11/15/2013 Chews tobacco 10/09/2012 documented as of this encounter (statuses as of 05/13/2024) Resolved Problems Problem Noted Date Diagnosed Date [...] as of this encounter (statuses as of 05/13/2024) Immunizations Name Administration Dates Next Due TDAP, [...] on file documented as of this encounter Miscellaneous Notes * Telephone Encounter - Jp Bailey RPh - 05/13/2024 10:13 AM EDTSigned Prescriptions: Disp Refills Tadalafil 20 MG Oral Tablet (Cialis) 30 Tab*0 Sig: Take 1 Tabletby mouth daily as needed for Erectile Dysfunction.Authorizing Provider: HEATHER FLORIAN User: JP BAILEY * Telephone Encounter - Jp Bailey RPh - 05/13/2024 10:09 AM EDT Provided 30 days supply with 0 refill(s) until next routine labs will approximately be drawn. Per refill protocol patient should have Scr on file within past year. Reviewed AMP report, Care Gaps/Health Maintenance, medications list, and for any routine labs typically ordered for this patient. Lab orders placed. Patient can complete labs with next routine lab work. Jp Bar Rph, Pharm D. Clinical Pharmacist [facility] [phone] 05/13/2024,10:12 AM documented in this encounter Plan of Treatment Scheduled Orders Name Type Priority Associated Diagnoses Orde r Schedule BASIC METABOLIC PANEL Lab Routine Encounter for long-term (current) use of other medications Expected: 05/20/2024, Expires: 05/13/2025 Health Maintenance Due Date Last Done Comments Hepatitis B Vaccine (1 of 3 - 19+ 3-dose series) 2001 DTaP,Tdap,and Td Vaccines (7 - Td or Tdap) 05/28/2021 05/28/2011, 06/26/1998, 07/05/1988, Additional history exists COVID-19 Vaccine (2022- season) 2023 Influenza Vaccine (FLU shot) (#1) [...] as of this encounter Visit Diagnoses Diagnosis Encounter for long-term (current) use of other medications- Primary Erectile dysfunction, unspecified erectile dysfunction type documented in this encounter Care Teams Appian Bpm Developer Relationship Specialty Start Date End Date Heather Florian MD [address] [facility] [place] [address] PCP - General 01/25/1999 documented as of this encounter
--- OUTSIDE RECORDS SUMMARY | 2024-07-22 05:45 | External Medical Summary | Summary of Care ---
Author Name Unknown Organization [facility] Address [address] [place] [address] Phone [phone] Care Team Providers Care Rate Clerk Name Role Phone Parminder Florian MD Primary Care Provider [phone] Reason for Referral * Evaluate & Treat - Unlimited Visits (Within 30 days (routine)) - Authorized Specialty Diagnoses / Procedures Referred By Contac t Referred To Contact Psychiatry Diagnoses Current moderate episode of major depressive disorder, unspecified whether recurrent (HCC) Yanet Owusu PA-C [address] [place] [address] Referral ID Status Reason Start Date Expiration Date Visits Requested Visits Authorized [id number] Authorized Specialty Services Required 04/05/2024 999 999 Question Answer Referral Priority Within 30 days (routine) Where should this appointment be scheduled? [facility] Is this referral for medication management? Yes Reason for Referral Depression Reason for Visit * Reason Comments Anxiety Pt states that he wa nts talk about his prozac and getting a referral for psychologist Encounter Details Date Type Department Care Team (Late st Contact Info) Description 04/05/2024 9:20 AM EDT Telemedicine [facility] [address] [facility] [place] [id number] Yanet Owusu PA-C [address], [place] [id number] Current moderate episode of major depressive disorder, unspecified whether recurrent (HCC)*; KIERA (generalized anxiety disorder) Allergies No known active allergiesdocumented as of this encounter (statuses as of 04/05/2024) Medications Medication Sig Dispensed Refills Start Date End Date Status Tadalafil 20 MG Oral Tablet (Cialis)Indicatio ns:Erectile dysfunction, unspecified erectile dysfunction type Take 1 Tablet by mouth daily as needed for Erectile Dysfunction. 30 Tablet 03/10/2024 Active Propranolol HCl 10 MG Oral Tablet (Inderal)Indicati ons:KIERA (generalized anxiety disorder) Take 1 Tablet by mouth 3 times a day as needed for Agitation (anxiety). 20 Tablet 5 04/05/2024 Active Escitalopram Oxalate 10 MG Oral Tablet (Lexapro) 1/2 tab daily for 1st 7 days then 1 daily 30 Tablet 5 04/05/2024 Active Escitalopram Oxalate 10 MG Oral Tablet (Lexapro) 1/2 tab daily for 1st 7 days then 1 daily 30 Tablet 5 11/08/2022 4 Discontinued Lidocaine Viscous HCl 2 % Mouth/Throat SolutionIndicatio ns:Acute sore throat Swish and spit as needed for Pain, Moderate. 5mL every 4 hours as needed 100 mL 12/26/2022 4 Discontinued Baclofen 10 MG Oral Tablet (Lioresal) Take 1 Tablet by mouth in the morning and 1 Tablet before bedtime. 30 Tablet 1 02/17/2023 4 Discontinued FLUoxetine HCl 20 MG Oral Capsule (PROzac)Indicatio ns:Current moderate episode of major depressive disorder, unspecified whether recurrent (HCC) Take 1 Capsule by mouth in the morning. 90 Capsule 3 02/20/2024 4 Discontinued documented as of this encounter (statuses as of 04/05/2024) Active Problems Problem Noted Date Diagnosed Date Herpes simplex type 1 infection 12/31/2022 Skin lesion of right ear 12/07/2021 DDD (degenerative disc disease), lumbar 10/14/20 Screening for lipid disorders 11/15/2013 Chews tobacco 10/09/2012 documented as of this encounter (statuses as of 04/05/2024) Resolved Problems Problem Noted Date Diagnosed Date [...] as of this encounter (statuses as of 04/05/2024) Immunizations Name Administration Dates Next Due TDAP, [...] in the Last Year Never true 09/21/2019 Sex and Gender Information Value Date Recorded Sex Assigned at Male 10/14/2019 2:03 PM EST Gender Identity Male 10/14/2019 2:03 PM EST Sexual Orientation Straight 09/21/2019 7: 30 AM EST Job Start Date Occupation Industry Not on file Not on file Not on file documented as of this encounter Progress Notes * Yanet Owusu PA-C - 04/05/2024 9:54 AM EDT Images from the original note were not included. History of Present Illness Yifan Yoo is a 43 year old male that presents for Anxiety (Pt states that he wants talk about his prozac and getting a referral for psychologist ) Due to COVID 19 pandemic, this visit was done via video. Patient is established with the practice. Last face to face visit was 02/18/2024. Call start time: 954 Patient location: HOME. I was in a hospital or clinic location. After connecting through televideo,patient was verified with two unique identifiers. Patient (or authorized legal risk control representative) was then informed that this was a Telemedicine visit and being conducted confidentially over secure lines. Methods to assure confidentiality were taken. Patient acknowledged consent and understanding of pr ivacy and security of the Telemedicine visit. The patient agreed to participate. Started prozac about [address] Florian Episodes worse and lasting longer This past Friday was one of the worse episodes he had ever had [place] like he had no control Has depression and nervousness constantly Feels trapped places All it takes is something little to escalate that into an episode Panic attacks and shutting down Gets heavy chested feeling, head sampson snot stop running and he cannot re-direct Feels trapped Has been in therapy but it is not working/. Getting more frequent Affecting all facets of life Work and family Goes to work and feels trapped there Does not want to be there Anything that irritates him a little bit Anhedonia Physical Exam There were no vitals filed for this visit. BP Readings from Last 3 Encounters: 02/20/24 122/74 01/21/24 122/72 09/10/23 122/80 Wt Readings from Last 3 Encounters: 02/20/24 83 kg (183 lb) 01/21/24 83.9 kg (185 lb) 09/10/23 86.3 kg (190 lb 3.2 oz) BMI Readings from Last 3 Encounters: 02/20/24 24.82 kg/m 01/21/24 25.09 kg/m 09/10/23 25.80 kg/m Ht Readings from Last 3 Encounters: 02/20/24 1.829 m (6') 02/17/23 1.829 m (6') 09/16/22 1.829 m (6') Assessment and Plan Current moderate episode of major depressive disorder, unspecified whether recurrent (HCC) (Primary) - ADULT/PEDS PSYCHIATRY REFERRAL OP KIERA (generalized anxiety disorder) - Propranolol HCl 10 MG Oral Tablet (Inderal); Take 1 Tablet by mouth 3 times a day as needed for Agitation (anxiety). Other orders - Escitalopram Oxalate 10 MG Oral Tablet (Lexapro); 1/2 tab daily for 1st 7 days then 1 daily Stop prozac Start this Prn med Discussion with patient of risk and benefit of medication. also discussion of common side affects. patient counseled and is aware and wishes to purse this medication, agrees to call with any issues or concerns. psych Wrap-Up Time: I spent a total of 20-29 minutes (exact time 29 mins) on the date of service in preparation, delivery, and documentation of the care provided to Yifan Yoo excluding any time spent in the performance of separately billed services. Yanet Owusu PA-C 04/05/2024 10:23 AM documented in this encounter Nursing Notes * Dunia Maki LPN - 04/05/2024 9:21 AM EDT Yifan Yoo is a 43 year old male who presents today for Chief Complaint Patient presents with Anxiety Pt states that he wants talk about his prozac and getting a referral for psychologist documented in this encounter Plan of Treatment Upcoming Encounters Date Type Department Care Team (Late st Contact Info) Description 04/16/2024 12:40 PM EDT Office Visit [facility] [address] [place] [address] Parminder Florian MD [address] [place] [facility] [place] [id number] Scheduled Referrals Name Type Priority Associated Diagnoses Orde r Schedule ADULT/PEDS PSYCHIATRY REFERRAL OP Referral Within 30 days (routine) Current moderate episode of major depressive disorder, unspecified whether recurrent (HCC) Ordered: 04/05/2024 Health Maintenance Due Date Last Done Comments Hepatitis B (1 of 3 - 19+ 3-dose series) 2001 DTaP,Tdap,and Td Vaccines (7 - Td or Tdap) 05/28/2021 05/28/2011, 06/26/1998, 07/05/1988, Additional history exists COVID-19 Vaccine (2022-24 season) 2023 Depression, Most Recent Score >= 10 (will fire each visit until score < 10) 02/21/2024 02/20/2024, 02/20/2024 Influenza Vaccine (FLU shot) (Season Ended) 2024 Lipid Panel 10/03/2026 10/03/2021, 09/27, 10/12/2018, Additional history exists GARDASIL-HPV IMMUNIZATION SERIES Aged Out No longer eligible based on [...] as of this encounter Visit Diagnoses Diagnosis Current moderate episode of major depressive disorder, unspecified whether recurrent (HCC)- Primary KIERA (generalized anxiety disorder) Generalized anxiety disorder documented in this encounter Care Teams Rate Clerk Relationship Specialty Start Date End Date Parminder Florian MD [address] [place] [address] PCP - General 01/25/1999 documented as of this encounter
--- OUTSIDE RECORDS SUMMARY | 2024-07-22 05:45 | External Medical Summary | Summary of Care ---
Author Name Unknown Organization [facility] Address [address] [facility] [place] [address] Phone [phone] Care Team Providers Care Rivet Driver Name Role Phone Heather Florian MD Primary Care Provider [phone] Reason for Visit * Reason Onset Date Comments Medication Refill 03/08/2024 Encounter Details Date Type Department Care Team (Late st Contact Info) Description 03/08/2024 Refill [facility] [address] [place] [address] Heather Florian MD [address] [place] [address] Erectile dysfunction, unspecified erectile dysfunction type Allergies No known active allergiesdocumented as of this encounter (statuses as of 03/10/2024) Medications Medication Sig Dispensed Refills Start Date End Date Status Escitalopram Oxalate 10 MG Oral Tablet (Lexapro) 1/2 tab daily for 1st 7 days then 1 daily 30 Tablet 5 11/08/2022 Active Additional Information Patient not taking.Reported on 01/21/2024 Lidocaine Viscous HCl 2 % Mouth/Throat SolutionIndicatio ns:Acute sore throat Swish and spit as needed for Pain, Moderate. 5mL every 4 hours as needed 100 mL 0 12/26/2022 Active Additional Information Patient not taking.Reported on 01/21/2024 Baclofen 10 MG Oral Tablet (Lioresal) Take 1 Tablet by mouth in the morning and 1 Tablet before bedtime. 30 Tablet 1 02/17/2023 Active Additional Information Patient not taking.Reported on 01/21/2024 FLUoxetine HCl 20 MG Oral Capsule (PROzac)Indicatio ns:Current moderate episode of major depressive disorder, unspecified whether recurrent (HCC) Take 1 Capsule by mouth in the morning. 90 Capsule 3 02/20/2024 Active Tadalafil 20 MG Oral Tablet (Cialis)Indicatio ns:Erectile dysfunction, unspecified erectile dysfunction type Take 1 Tablet by mouth daily as needed for Erectile Dysfunction. 30 Tablet 0 03/10/2024 Active Tadalafil 20 MG Oral Tablet (Cialis)Indicatio ns:Erectile dysfunction, unspecified erectile dysfunction type Take 1 Tablet by mouth daily as needed for Erectile Dysfunction. 30 Tablet 0 01/05/2024 Discontinue d(Refill) documented as of this encounter (statuses as of 03/10/2024) Active Problems Problem Noted Date Diagnosed Date Herpes simplex type 1 infection 12/31/2022 Skin lesion of right ear 12/07/2021 DDD (degenerative disc disease), lumbar 10/14/20 17 Screening for lipid disorders 11/15/2013 Chews tobacco 10/09/2012 documented as of this encounter (statuses as of 03/10/2024) Resolved Problems Problem Noted Date Diagnosed Date [...] as of this encounter (statuses as of 03/10/2024) Immunizations Name Administration Dates Next Due TDAP (age 11 and older)(Adacel) 05/28/2011 documented as of this encounter Social [...] encounter Miscellaneous Notes * Telephone Encounter - Eun Barrera RPh - 03/10/2024 8:51 AM EDTSigned Prescriptions: Disp Refills Tadalafil 20 MG Oral Tablet (Cialis) 30 Tab*0 Sig: Take 1 Tabletby mouth daily as needed for Erectile Dysfunction.Authorizing Provider: HEATHER FLORIAN User: EUN BARRERA documented in this encounter Plan of Treatment Upcoming Encounters Date Type Department Care Team (Late st Contact Info) Description 03/10/2024 3:00 PM EDT Office Visit [address] [place] [address] Itzel Pathak MD [address] [facility] [place] [address] 04/16/2024 12:40 PM EDT Office Visit [facility] [address] [place] [address] Heather Florian MD [address] [place] [address] Health Maintenance Due Date Last Done Comments Hepatitis B (1 of 3 - 19+ 3-dose series) 2001 DTaP,Tdap,and Td Vaccines (7 - Td or Tdap) 05/28/2021 05/28/2011, 06/26/1998, 07/05/1988, Additional history exists COVID-19 Vaccine (2022- season) 2023 Depression, Most Recent Score >= [...] as of this encounter Visit Diagnoses Diagnosis Erectile dysfunction, unspecified erectile dysfunction type documented in this encounter Care Teams Rivet Driver Relationship Specialty Start Date End Date Heather Florian MD [address] [place] [address] PCP - General 01/25/1999 documented as of this encounter
--- OUTSIDE RECORDS SUMMARY | 2024-07-22 05:45 | External Medical Summary | Summary of Care ---
Author Name Unknown Organization [facility] Address [address] [facility] [place] [address] Phone [phone] Care Team Providers Care Cross Cut Sawyer Name Role Phone Parminder Florian MD Primary Care Provider [phone] Reason for Visit * Reason Onset Date Comments Appointment 02/23/2024 Encounter Details Date Type Department Care Team (Late st Contact Info) Description 02/23/2024 Telephone [facility] [address] [place] [address] Itzel Pathak MD [address] [place] [address] Appointment Allergies No known active allergiesdocumented as of this encounter (statuses as of 02/26/2024) Medications Medication Sig Dispensed Refills Start Date End Date Status Escitalopram Oxalate 10 MG Oral Tablet (Lexapro) 1/2 tab daily for 1st 7 days then 1 daily 30 Tablet 5 11/08/2022 Active Additional Information Patient not taking.Reported on 01/21/2024 Lidocaine Viscous HCl 2 % Mouth/Throat SolutionIndications :Acute sore throat Swish and spit as needed for Pain, Moderate. 5mL every 4 hours as needed 100 mL 0 12/26/2022 Active Additional Information Patient not taking.Reported on 01/21/2024 Baclofen 10 MG Oral Tablet (Lioresal) Take 1 Tablet by mouth in the morning and 1 Tablet before bedtime. 30 Tablet 1 02/17/2023 Active Additional Information Patient not taking.Reported on 01/21/2024 Tadalafil 20 MG Oral Tablet (Cialis)Indications :Erectile dysfunction, unspecified erectile dysfunction type Take 1 Tablet by mouth daily as needed for Erectile Dysfunction. 30 Tablet 0 01/05/2024 Active Additional Information Patient not taking.Reported on 01/21/2024 FLUoxetine HCl 20 MG Oral Capsule (PROzac)Indications :Current moderate episode of major depressive disorder, unspecified whether recurrent (HCC) Take 1 Capsule by mouth in the morning. 90 Capsule 3 02/20/2024 Active documented as of this encounter (statuses as of 02/26/2024) Active Problems Problem Noted Date Diagnosed Date Herpes simplex type 1 infection 12/31/2022 Skin lesion of right ear 12/07/2021 DDD (degenerative disc disease), lumbar 10/14/20 17 Screening for lipid disorders 11/15/2013 Chews tobacco 10/09/2012 documented as of this encounter (statuses as of 02/26/2024) Resolved Problems Problem Noted Date Diagnosed Date [...] as of this encounter (statuses as of 02/26/2024) Immunizations Name Administration Dates Next Due TDAP [...] encounter Miscellaneous Notes * Telephone Encounter - Kemi Cordero OSA - 02/26/2024 3:10 PM EDT Pt called back and confirmed scheduled appt with dr Pathak in February * Telephone Encounter - Kemi Cordero OSA - 02/25/2024 9:59 AM EDT 2ND CALL LMM to call [phone] or respond to a [facility] message to confirm re schedule appt for 03/10/24 at 3pm for post surgery laser tx to scar. * Telephone Encounter - Kemi Cordero OSA - 02/24/2024 9:30 AM EDT LMM of scheduled appt for 03/10 at 3pm. Asked patient to please call [phone] to confirm. * Telephone Encounter - Kemi Cordero OSA - 02/23/2024 2:[address] Pathak I do not think this patient is coming in today at 2pm -he never called back to confirm. Any other suggestions on where to re scheduled him? Or just next available would be March 10 in the afternoon? * Telephone Encounter - Kemi Cordero OSA - 02/23/2024 8:33 AM EDT 02/23/24 M and sent a [employer] message to asks patient to come in today Friday02/23/[address] Pathak for laser treatment to his mohs scar. Asked him to respond to [facility] message or to call [phone] to confirm. documented in this encounter Plan of Treatment Upcoming Encounters Date Type Department Care Team (Late st Contact Info) Description 03/10/2024 3:00 PM EDT Office Visit [facility] [address] [place] [address] Itzel Pathak MD [address] [place] [address] 04/16/2024 12:40 PM EDT Office Visit [facility] [address] [place] [phone] Parminder Florian MD [address] [place] [address] Health Maintenance Due Date Last Done Comments [...] filedocumented as of this encounter Care Teams Cross Cut Sawyer Relationship Specialty Start Date End Date Parminder Florian MD [address] [place] [address] PCP - General 01/25/1999 documented as of this encounter
--- OUTSIDE RECORDS SUMMARY | 2024-07-22 05:45 | External Medical Summary | Summary of Care ---
Author Name Unknown Organization [facility] Address [address] [facility] [place] [address] Phone [phone] Care Team Providers Care Director Of Security Name Role Phone Parminder Florian MD Primary Care Provider [phone] Reason for Visit * Reason Comments Status Check Patient is here toda y to discuss starting depression medication. Patient states over the last month or two he has seen a change. Encounter Details Date Type Department Care Team (Late st Contact Info) Description 02/20/2024 3:40 PM EDT Office Visit [facility] [address] [place] [address] Parminder Florian MD [address] [place] [address] Current moderate episode of major depressive disorder, unspecified whether recurrent (HCC)* Allergies No known active allergiesdocumented as of this encounter (statuses as of 02/20/2024) Medications Medication Sig Dispensed Refills Start Date [...] as of this encounter (statuses as of 02/20/2024) Active Problems Problem Noted Date Diagnosed Date Herpes simplex type 1 infection 12/31/2022 Skin lesion of right ear 12/07/2021 DDD (degenerative disc disease), lumbar 10/14/20 17 Screening for lipid disorders 11/15/2013 Chews tobacco 10/09/2012 documented as of this encounter (statuses as of 02/20/2024) Resolved Problems Problem Noted Date Diagnosed Date [...] as of this encounter (statuses as of 02/20/2024) Immunizations Name Administration Dates Next Due TDAP [...] Sign Reading Time Taken Comments Blood Pressure 122/74 02/20/2024 3:37 PM EDT Pulse 84 02/20/2024 3:37 PM EDT Temperature 36.5 C (97.7 F) 02/20/2024 3:37 PM ED T Respiratory Rate 16 02/20/2024 3:37 PM EDT Oxygen Saturation 94% 02/20/2024 3:37 PM EDT Inhaled Oxygen Concentration - - Weight 83 kg (183 lb) 02/20/2024 3:37 PM EDT Height 182.9 cm (6') 02/20/2024 3:37 PM EDT Body Mass Index 24.82 02/20/2024 3:37 PM EDT documented in this encounter Progress Notes * Parminder Florian MD - 02/20/2024 4:18 PM EDT Subjective: Yifan Yoo is a 43 year old male. Chief Complaint Patient presents with Status Check Patient is here today to discuss starting depression medication. Patient states over the last month or two he has seen a change. HPI: 43-year-old seen today because of symptoms of depression. He is lost all interest. He finds himself Um obsessing about things that he can not change. He feels sad. He is quick tempered. Denies any major stressors. He does have a girlfriend who is very supportive. He has been separate from his for 2 years in is waiting for the 3 finalized. He is he has been in counseling. He has not certain that it has been helpful. On the other hand he has Um really avoided any medications for depression. I hit prescribed Lexapro about 16 months ago but he never took it. New line denies suicidal thought or intent Patient Active Problem List Diagnosis Code Chews tobacco Z72.0 Screening for lipid disorders Z13.220 DDD (degenerative disc disease), lumbar M51.36 Skin lesion of right ear H61.91 Herpes simplex type 1 infection B00.9 Current Outpatient Medications Medication Sig Dispense Refill FLUoxetine HCl 20 MG Oral Capsule (PROzac) Take 1 Capsule by mouth in the morning. 90 Capsule 3 Escitalopram Oxalate 10 MG Oral Tablet (Lexapro) 1/2 tab daily for 1st 7 days then 1 daily (Patientnot taking: Reported on 01/21/2024) 30 Tablet 5 Lidocaine Viscous HCl 2 % Mouth/Throat Solution Swish and spit as needed for Pain, Moderate. 5mL every 4 hours as needed (Patient not taking: Reported on 01/21/2024) 100 mL 0 Baclofen 10 MG Oral Tablet (Lioresal) Take 1 Tablet by mouth in the morning and 1 Tablet before bedtime. (Patient not taking: Reported on 01/21/2024) 30 Tablet 1 Tadalafil 20 MG Oral Tablet (Cialis) Take 1 Tablet by mouth daily as needed for Erectile Dysfunction. (Patient not taking: Reported on 01/21/2024) 30 Tablet 0 No current facility-administered medications for this visit. Review of patient's allergies indicates: No Known Allergies Objective: BP 122/74 | Pulse 84 | Temp 36.5 C (97.7 F) (Tympanic) | Resp 16 | Ht 1.829 m (6') | Wt 83 kg (183 lb) | SpO2 94% | BMI 24.82 kg/m | BSA 2.05 m Physical Exam: CONST: alert, pleasant, no acute distress HEAD: normocephalic, atraumatic MENTAL STATUS: no evidence of thought disorder, no delusional thought, no evidence of paranoia, thought is non-tangential. Mood-depressed. Not suicidal. ASSESSMENT/PLAN: Current moderate episode of major depressive disorder, unspecified whether recurrent (HCC) (Primary)-after a long discussion the patient agreed to try Prozac. I chose Prozac in part because he thought that his sister was on Prozac. His girlfriend uses Prozac. - FLUoxetine HCl 20 MG Oral Capsule (PROzac); Take 1 Capsule by mouth in the morning. Reviewed side effects. Patient is extremely anxious about sexual dysfunction. Already having some sexual dysfunction not on medication. I explained to him that it is possible that has a Prozac will actually improve his sexual dysfunction. If this gets worse, consider switching to Wellbutrin. Follow Up: Return in about 7 weeks (around 04/09/2024). Parminder Florian MD: documented in this encounter Nursing Notes * Ev To LPN - 02/20/2024 3:38 PM EDT The patient has been properly identified by confirmation of name and date of . Chief Complaint Patient presents with Status Check Patient is here today to discuss starting depression medication. Patient states over the last month or two he has seen a change. documented in this encounter Plan of Treatment Upcoming Encounters Date Type Department Care Team (Late st Contact Info) Description 04/16/2024 12:40 PM EDT Office Visit [facility] [address] [place] [address] Parminder Florian MD [address] [place] [address] Health Maintenance Due Date Last Done Comments [...] depressive disorder, unspecified whether recurrent (HCC)- Primary documented in this encounter Care Teams Director Of Security Relationship Specialty Start Date End Date Parminder Florian MD [address] [place] [address] PCP - General 01/25/1999 documented as of this encounter"
--- NOTE | 2024-07-22 09:27 | Discharge Summary ---
Date of Service July 22, 2024 Admission HPI Per Admitting Provider This 44-year-old male patient presents to the emergency department with abdominal pain. The pain started this AM. The patient denies any fever or chills. No nausea or vomiting. No diarrhea. No history of similar symptoms. A CT scan shows acute appendicitis with fecalith. Principal Diagnosis Acute appendicitis Left renal mass Discharge Exam Constitutional WD/WN, vitals as above cooperative and comfortable; no acute distress and not ill appearing Respiratory normal respiratory effort; no respiratory distress Gastrointestinal (Abdomen) Inspection/Auscultation: abdomen normal to inspection and + abdominal surgical incision (c/d/i with dermabond); abdomen not distended Percussion/Palpation: + abdomen tender (at surgical incisions, appropriate postop) and abdomen soft; no guarding, abdomen not rigid and abdomen not firm Skin no rashes, warm and dry Psychiatric A+Ox3, euthymic affect Discharge Data Allergies Allergy/AdvReac Type Severity Reaction Status Date / Time No Known Allergies Allergy Unverified 07/21/24 17:51 Procedures Performed Operation Date: 07/21/24 18:50 Actual Procedures p Laparoscopic Appendectomy(Not Applicable) - Adam Summers MD Ordered Studies 07/21/24 16:34 CT abd pelvis IV con only Stat Hospital Course (1) Appendicitis, acute, with generalized peritonitis: Patient taken to operating room for laparoscopic appendectomy on 07/21/[address] Summers. Patient found to have uncomplicated appendicitis and tolerated procedure without difficulty. Patient transferred to med/surg for postop care. Diet advanced and activity as tolerated, pain management as needed, IV abx continued, and IV fluids continued. POD# 1 avss, postop pain controlled, tolerated regular diet, urinating without difficulty. Patient was discharged home on POD # 1 in stable condition. (2) Renal mass: Incidentally found on CT scan of abd/pelvis. Urology contacted in ED and recommended outpatient F/U. Reached out to [facility] and they will call patient in next 1-2 days for appointment. Total Time Total Time Spent Total Time Spent (In Minutes): 30 Total Time Includes: Examination of the Patient, Discharge Planning, Medication Reconciliation and Communication With Other Providers Discharge Plan Discharge Items Patient Disposition: Home - Self-Care Reason For Visit: APPENDCITIS Discharge Diagnosis: Acute appendicitis Left renal mass Activity: Per Instructions section Non-emergency contact: Primary Care Provider and Surgeon Call non-emergency contact if: you have any medication questions, your pain is not controlled, your pain is unusual for you, your pain is concerning for you, you have a fever, your temperature is above 101, your wound has increased redness, your wound has increased drainage and your wound pain has increased Follow-up/Referrals: [facility] [Provider Group] (Urology office will reach out to you to set up an appointment) Adam Summers MD [Physician] - 08/05/24 9:30 am Parminder Florian MD [Primary Care Provider] - Diet: Regular Addtl Attending Provider Instructions: Post-Surgical ~Discharge Instructions Activity Recommendations: - lifting limitation: (20 pounds for 3-4 weeks), - exercise/sex/sports limit: (nonstrenuous for 2 weeks), - driving or machine use limit: (none for 1 week or until pain free and no longer taking narcotic pain medication), - Shower/bathe limit: (may shower , no submerging incisions underwater for 2 weeks) Diet: - Resume previous diet SPECIAL CARE INSTRUCTIONS: - May shower. Let water run over area and pat dry. - Leave surgical glue on incisions, this will fall off on its own. - Call the surgeon's office with any questions or concerns - - (ex. temperature higher than 101 degrees F, excessive bleeding or pain). MEDICATIONS: - Resume previous medications unless instructed otherwise by your surgeon. - May alternate extra strength Tylenol and Ibuprofen as needed for mild to moderate pain - 650 mg Tylenol every 6 hours - Ibuprofen 600 mg every 6 hours with food - Percocet 1 every 6 hours, as needed for moderate to severe pain - Recommend daily stool softener (Colace) while taking narcotic pain medication to prevent constipation and straining. Drink plenty of water daily. FOLLOW UP VISIT: - If not already scheduled, please call the office to schedule a two week follow-up appointment. Office number Left renal mass found on CT scan. Referral for [facility]. I have reached out to them and given your information. They will reach out to you about an appointment. Please call their office if you have not heard from them in the next 1-2 days. Pending Studies at Discharge: Yes (appendix pathology, will be reviewed at postop visit) Stand-Alone Forms: My [facility], Work/School Release, Smoking Cessation Medications and DC Order Prescriptions: New oxycodone-acetaminophen 5-325 mg tablet 1 tab PO Q6H PRN (Reason: pain) Qty: 5 0RF Continued escitalopram oxalate 10 mg tablet 10 mg PO DAILY Discharge Orders: Discharge Order (Routine); Ordered 07/22/24 Ordered By: Shantell Mckeon Admission Data Admit Date/Time: 07/21/24 20:16 Attending Provider: Adam Summers Admit Provider: Adam Summers Primary Care Provider: Parminder Florian
[2024-07-22 13:19] VITALS: BP 110/70; PULSE 48; RESP 20; TEMP 97.9; O2SAT 96
== END 2024-07-22 13:24 | disposition home or self-care (01) ==
LOC: ED 15:07 → OR 18:59 → 3N 18:59
DX: K35.209 Acute appendicitis with generalized peritonitis, without abscess, unspecified as to perforation; N28.89 Other specified disorders of kidney and ureter; Z79.899 Other long term (current) drug therapy

== ENCOUNTER 2024-09-21 09:16 | Observation (INO) ==
--- NOTE | 2024-09-14 15:24 | Anesthesiology Consultation ---
Date of Service September 14, 2024 Assessment & Plan (1) Encounter for pre-operative examination: Chart Review Chart Review: Acceptable Risk for Surgery and Patient NOT seen in Pre Admission Testing Infectious Disease screening: Per PAT nursing assessment on 09/14/24, No known infectious disease contacts in past 10 days or current infectious disease symptoms. No recent travel outside the country. History Surgery Operation Date: 09/21/24 10:50 Proposed Procedures p Robotic Laparoscopic Assisted Partial Nephrectomy, Possible Hand Assisted [place] roscopic Nephrectomy - Left - Tino Eldridge MD Height/Weight Height: 6 ft Weight: 79.379 kg Allergies Allergy/AdvReac Type Severity Reaction Status Date / Time No Known Allergies Allergy Verified 09/14/24 11:17 Medications Home Medications Medication Instructions Recorded Confirmed Last Taken escitalopram oxalate 10 mg tablet 10 mg PO QAM 07/21/24 09/14/24 Unknown Past Medical History Medical History (Updated 09/14/24 @ 15:20 by Laura Seymour PA-C) Anxiety and depression Renal mass found incidentally on imaging during 07/21/24 ED visit for appendicitis; 'concerning for carcinoma' Past Surgical History Surgical History (Updated 09/14/24 @ 15:20 by Laura Seymour PA-C) History of lumbar surgery 2017, L5-S1 Hx of appendectomy 07/21/24, [facility]: [place]: MAC#3, ETT#7.5, Gr View 1; no issues Social History Smoking Status: Never smoker Do You Dip or Chew Tobacco: Yes (advised) Hx Alcohol Use: Yes Alcohol type: beer, wine and hard liquor alcohol intake frequency: other Alcohol Intake Frequency Comment: 2x per week Hx Substance Use: No substance use type: does not use Lab Results Anesthesia Preop Results Results Anesthesia Widget: WBC 6.22 K/ul (4.8-10.8) 08/21/24 Hgb 14.4 g/dl (14.0-18.0) 08/21/24 Hct 42.4 % (42.0-52.0) 08/21/24 Plt 261 K/uL (130-400) 08/21/24 Na 141 mmol/L (136-145) 08/21/24 K 4.0 mmol/L (3.5-5.1) 08/21/24 Cl 108 mmol/L (98-107) H 08/21/24 CO2 27 mmol/L (21-32) 08/21/24 BUN 17 mg/dl (6-23) 08/21/24 Creat 0.98 mg/dl (0.6-1.4) 08/21/24 Glucose Level 88 mg/dl (70-99(Fasting)) 08/21/24 Urine Color Yellow 07/22/24 Urine Appearance Clear 08/30/24 Urine pH 6.5 (4.5-7.5) 07/22/24 Urine Specific [place] 1.042 (1.000-1.030) H 07/22/24 Urine Protein Negative (Negative) 07/22/24 Urine Glucose (UA) Negative (Negative) 07/22/24 Urine Ketones Trace (Negative) H 07/22/24 Urine Blood Negative (Negative) 07/22/24 Urine Nitrite Negative (Negative) 07/22/24 Urine Bilirubin Negative (Negative) 07/22/24 Urine Urobilinogen Negative (Negative) 07/22/24 Urine Leukocyte Esterase Negative (Negative) 07/22/24 Testing Laboratory Results 08/30/24: urine culture: three types of organisms present, all low counts probable skin isabel Chest X-Ray Date: 08/30/24 Findings: + NAD Other Testing 08/30/24 Abdomen MRI: 1. Confirmation of the enhancing 2.5 cm left renal mass suggestive of renal cell carcinoma. 2. No hydronephrosis. 3. No lymphadenopathy or evidence of metastatic disease. 4. Partially imaged indeterminate 1.8 cm left anterior abdominal wall enhancing focus is likely benign. Correlate with physical exam findings. 07/21/24 Abd/Pelvis CT: 1. Acute appendicitis with 9 mm appendicolith. 2. No bowel obstruction, pneumoperitoneum or abscess. 3. 2.7 cm left renal mass suspicious for renal cell carcinoma. Correlation with nonemergent follow-up MRI of the abdomen recommended along with urology consultation.
[~2024-09-21 09:16] MED LIST changes: +ACETAMINOPHEN 1000 MG/100 ML IV IV ONE; +ALBUMIN HUMAN 5% 12.5 GM/250 ML VIAL IV ONE; -CYCL10TA6 PO; +DEXAMETHASONE SOD INJ 4 MG/ML VIAL ONE; -HYDR-5688 PO; +LIDOCAINE 2% 2 ML VIAL/AMP(20MG/ML) INFIL ONE; +MIDAZOLAM HCL 1 MG/ML 2ML VIAL ONE; +ONDANSETRON INJ 2 MG/ML 2 ML VIAL ONE; +PROPOFOL IV EMULSION 10 MG/ML 20 ML VIAL IV ONE; +ROCURONIUM BROMIDE 10 MG/ML 5 ML VIAL IV ONE; +SUGAMMADEX SODIUM 200 MG/2 ML VIAL IV ONE; +fentaNYL citrate PF 100 MCG/2 ML VIAL ONE
--- NOTE | 2024-09-21 09:40 | History & Physical Bridge Note ---
Date of Service September 21, 2024 History & Physical Bridge Note I have examined the patient, reviewed the History & Physical and in the interval since the performance of the History & Physical I have noted the following changes of clinical significance: no changes noted
[2024-09-21] MEDS: LR 15ML/HR IV SCH (09:52)
[2024-09-21] MEDS ORDERED: ONDANSETRON INJ 2 MG/ML 2 ML VIAL IV PRN ×2 (09:58→15:33)
[2024-09-21] MEDS ORDERED: ATROPINE SULFATE 0.1 MG/ML 10ML SYR IV PRN (09:58)
[2024-09-21] MEDS: ceFAZolin 2000MG 2,000 MG/15 ML SYR IV SCH ×2 (11:19→18:06)
[2024-09-21] MEDS ORDERED: ePHEDrine sulfate 50 MG/5 ML SYR ONE (11:49)
[2024-09-21] MEDS ORDERED: ROCURONIUM BROMIDE 10 MG/ML 5 ML VIAL IV ONE (11:51)
[2024-09-21] MEDS ORDERED: MANNITOL 25% 12.5 GM/50 ML VIAL IV ONE (12:42)
[2024-09-21] MEDS ORDERED: fentaNYL citrate PF 100 MCG/2 ML VIAL ONE (13:37)
[2024-09-21] MEDS: TISSEEL FIBRIN SEALANT 10ML TOP ONE (13:40)
[2024-09-21] MEDS: SURGICEL ABSORB HEMOSTAT 2IN X 14IN TOP ONE (13:40)
[2024-09-21] MEDS: FLOSEAL HEMOSTATIC MATRIX 10ML TOP ONE (13:40)
[2024-09-21] MEDS: BUPIVACAINE 0.5 % 5 MG/1 ML MPF 30ML VIAL ONE (13:47)
--- NOTE | 2024-09-21 14:10 | Operative Report ---
PG Post Operative Report Pre & Post Diagnosis Operation Date: 09/21/24 10:50 Pre-Op Diagnosis: left Renal Mass Post-Op Diagnosis: left Renal Mass I identified the patient and participated in the time-out.: Yes Procedure Operation Date: 09/21/24 10:50 Actual Procedures p Robotic Assisted Laparoscopic Partial Nephrectomy - Left(Left) - Tino Eldridge MD Surgeon Tino Eldridge MD [employer] Information [employer] Mary Gonzalez Estimated Blood Loss 100 Findings Consistent with Post-Op Diagnosis Specimens Left renal mass Description of Procedure Patient was identified in the preoperative holding area appropriate informed consents reviewed and completed and he was transported to the operating suite. Upon arrival he received appropriate preoperative antibiotics and was administered general anesthesia. He was placed in a [id number] left side up lateral decubitus position with the bed flexed. He was padded and braced ap propriately. Sterile prep in standard fashion. To begin the case I passed a Veress needle under the left costal margin and insufflated the abdomen to 15 mmHg. Of note, he is status post recent laparoscopic appendectomy. I was able to reuse 2 incisions, 1 just above the umbilicus and the other in the left lower quadrant. I did not enter the abdomen initially in these incisions. I did butch an additional incision lateral to the rectus border approximately 5 cm above the umbilicus. I utilized an 8 mm Visiport and 5 mm lens to be able to enter in this area. He had no adhesions or other abnormalities. I was able to inspect the anterior abdominal wall and confirmed that the other marked out port sites were all free of adhesions. I then reopened the 2 prior port sites utilizing a 12 mm port in the midline and an 8 mm port in the left lower quadrant. 2 additional 8 mm ports were placed along the same line as the first 2, 1 superior and 1 inferior to allow full robotic utilization. I then docked the robot. We began by incising the white line of Toldt medializing the colon off of the kidney. On the inferior aspect of the kidney I was able to identify the gonadal vein and elevate the kidney after dissecting onto the psoas muscle. We traced the gonadal vein up until the lower aspect of the renal vein was encountered. The renal vein was circumferentially cleared. We initially encountered an artery just inferior to the vein. This was moderate in size but clearly advancing to the kidney. This was skeletonized. There also was a prominent lumbar vein which was avoided. Following exposure of the hilar structures, I turned my attention to the renal mass. I incised Gerota's fascia over the anterior aspect of the kidney below the anticipated location of the tumor. I carefully worked my way up towards the tumor. The tumor was visualized as it is approximately 50% exophytic. I circumferentially dissected around the tumor exposing healthy appearing renal parenchyma. The lateral superior and inferior margin of the tumor were easily to expose. The medial aspect comes close to hilar structures so use extreme caution as I dissected through this area. There is a prominent vein node located relatively close to the medial corner of the tumor. Of note, a fat pad was left on the anterior surface of the tumor to assist with retraction and mobilization. I did perform a laparoscopic ultrasound evaluation of the entire kidney and area around the mass at that time. We are able to visualize the deep margin of the tumor as well as the medial structures. I marked to the capsule of the kidney and the location of my anticipated incision. 2 V-Loc sutures were placed into the abdomen with Weck clips and Heema locks in anticipation of renorrhaphy. 12.5 g of mannitol was administered. We then turned our attention to the hilar structures. An initial effort was made to clamp the artery below the vein. After this clamp was placed inspection revealed that the kidney did not savita appropriately. We transiently placed a clamp across the vein but the grouping filled behind the clamp so I removed this clamp and then the arterial clamp. Rather than proceed with a partial nephrectomy we continued dissection and I began working superior to the vein. I did identify a second artery in this area which was of similar or may be slightly larger size in the inferior artery. We are able to clear this artery entirely and create a path for clamp placement. At that time we again placed a short curved bulldog across the superior artery. A short straight bulldog was placed across the inferior artery. There was immediate blanching of the kidney. A long straight clamp was placed across the vein and the vein did not fill. Utilizing the previously marked area around the perimeter of the tumor I was able to incise the capsule and begin dissection. On the medial aspect of the tumor, I was extremely cautious because of the close proximity to the vein. We did visualize the tumor in this area but I was able to redirect my dissection to confirm that all tumor was resected and removed from the bed of the resection. I also saw a healthy appearing renal parenchyma on the superior, lateral, deep and inferior margins. After the tumor was entirely excised, it was placed just out of my [id number] at the lower edge of the kidney. I turned my attention back to the defect. I utilized bipolar electrocautery and carefully inspected the medial area of the kidney to confirm that there was no residual tumor left behind. We then began renorrhaphy utilizing a sliding clip technique. 4 passes across the kidney were conducted which appropriately reapproximated the renal parenchyma. I then used a second suture to superficially close the capsule and most superficial renal parenchyma. We removed the bulldog clamps and the opposite order that they were placed. The venous clamp was removed first followed by the inferior artery and then ultimately the superior artery. Hemostasis was excellent. We did place a half sheet of Surgicel across the defect and coated with Tisseel for additional hemostasis. The hilar structures were very hemostatic. I r eapproximated Gerota's fascia utilizing a running V-Loc suture. All needles were removed from the abdomen. The specimen was collected in an Endo Catch bag. We again confirmed excellent hemostasis before beginning extraction and closure. A Lexa-Bright device was utilized to close the midline port. There was good approximation of the fascia. The left lower quadrant port that had previously been utilized for the appendectomy was expanded to approximately 2 cm which allowed extraction of the specimen. The specimen was passed off the table. The fascia in this incision was reapproximated utilizing a running 0 Vicryl suture. Marcaine was used to anesthetize all of the incisions. A drain was placed through the most inferior robotic port and sutured in place utilizing a 3-0 nylon. All of the superficial incisions were closed with 4-0 Monocryl and Dermabond. He was reversed of anesthesia and taken to the recovery room in stable condition. There were no complications. Mary Gonzalez assisted from incision to closure and throughout all parts of the case. I attest to the content of the Intraoperative Record and any orders documented therein. Any exceptions are noted below.
[2024-09-21] MEDS: DROPERIDOL 5 MG/2 ML VIAL IV PRN (14:11)
[2024-09-21] MEDS: HYDROmorphone INJ 1 MG/ML SYRINGE IV PRN (14:12)
[2024-09-21] MEDS: KETOROLAC 30 MG/ML VIAL IV PRN (14:24)
[2024-09-21 14:37] LABS: Basophils # (auto) 0.03 K/uL (0.00-0.20); Basophils % (auto) 0.3 %; Eosinophils # (auto) 0.01 K/uL (0.00-0.50); Eosinophils % (auto) 0.1 %; Hematocrit (blood only) 41.1 % (42.0-52.0); Hemoglobin 13.6 g/dl (14.0-18.0); Immature Granulocytes # (auto) 0.06 K/uL (0.01-0.20); Immature Granulocytes % (auto) 0.6 %; Lymphocytes % (auto) 11.4 %; Mean Corpuscular Hemoglobin 29.1 pg (25.0-34.0); Mean Corpuscular Hgb Conc 33.1 g/dL (32.0-36.0); Mean Platelet Volume 9.7 fL (9.4-12.4); Monocytes # (auto) 0.19 K/uL (0.11-0.59); Neutrophils # (auto) 8.28 K/uL (1.40-6.50); Neutrophils % (auto) 85.6 %; Platelet Count 201 K/uL (130-400); RDW Standard Deviation 38.6 fL (36.4-46.3); Red Blood Count 4.67 M/uL (4.70-6.10); White Blood Count 9.67 K/ul (4.8-10.8)
[2024-09-21 14:53] LABS: BUN Creatinine Ratio 17.8 (10-20); Creatinine Clr Calc Pharmacy 104.6 ml/min; Potassium 5.3 mmol/L (3.5-5.1)
--- NOTE | 2024-09-21 14:59 | Anesthesiology Progress Note ---
Date of Service September 21, 2024 Anesthesia Post Procedure Vital Signs Vital Signs: Temp Pulse Pulse Resp BP BP Pulse Ox 09/21/24 14:45 60 13 117/70 94 09/21/24 14:35 62 14 114/67 94 09/21/24 14:25 76 14 155/98 H 94 09/21/24 14:15 85 15 148/92 H 95 09/21/24 14:05 36.0 C L 90 15 143/109 H 96 09/21/24 09:51 36.8 C 58 L 18 102/82 96 O2 Del Method O2 Flow Rate 09/21/24 14:45 Nasal Cannula 4 09/21/24 14:35 Nasal Cannula 4 09/21/24 14:25 Nasal Cannula 4 09/21/24 14:15 Oxymask 5 09/21/24 14:05 Oxymask 5 09/21/24 09:51 Room Air Transfer of Care Handoff Completed per policy Notes Mental Status: alert / awake / arousable Patient Amnestic to Procedure: Yes Nausea / Vomiting: adequately controlled Pain: adequately controlled Airway Patency, RR, SpO2: stable & adequate BP & HR: stable & adequate Hydration State: stable & adequate Anesthetic Complications: no major complications apparent
--- NOTE | 2024-09-21 15:33 | Anesthesiology Progress Note ---
Date of Service September 21, 2024 Anesthesia Post Procedure Vital Signs Vital Signs: Temp Pulse Pulse Resp BP BP Pulse Ox 09/21/24 14:55 36.3 C L 61 13 119/71 96 09/21/24 14:45 60 13 117/70 94 09/21/24 14:35 62 14 114/67 94 09/21/24 14:25 76 14 155/98 H 94 09/21/24 14:15 85 15 148/92 H 95 09/21/24 14:05 36.0 C L 90 15 143/109 H 96 09/21/24 09:51 36.8 C 58 L 18 102/82 96 O2 Del Method O2 Flow Rate 09/21/24 14:55 Nasal Cannula 4 09/21/24 14:45 Nasal Cannula 4 09/21/24 14:35 Nasal Cannula 4 09/21/24 14:25 Nasal Cannula 4 09/21/24 14:15 Oxymask 5 09/21/24 14:05 Oxymask 5 09/21/24 09:51 Room Air Transfer of Care Handoff Completed per policy Notes Mental Status: alert / awake / arousable Patient Amnestic to Procedure: Yes Nausea / Vomiting: adequately controlled Pain: adequately controlled Airway Patency, RR, SpO2: stable & adequate BP & HR: stable & adequate Hydration State: stable & adequate Anesthetic Complications: no major complications apparent
[2024-09-21] MEDS: SODIUM CHLORIDE 0.9% 1,000 ML IV SCH (16:03)
[2024-09-21] MEDS: MoRPHine SULFATE 2 MG/ML CARP IV PRN ×2 (16:04→19:16)
[2024-09-21] MEDS: oxyCODONE HCL IR 5 MG TAB (IMMEDIATE RELEASE) PO PRN (17:26)
[2024-09-21] MEDS: FAMOTIDINE/PF 20 MG/2 ML VIAL IV ONE (19:55)
[2024-09-21] MEDS: DOCUSATE SODIUM 100 MG CAP PO SCH (20:50)
[2024-09-22] MEDS: oxyCODONE HCL IR 5 MG TAB (IMMEDIATE RELEASE) PO PRN (03:02)
[2024-09-22 06:48] LABS: Basophils # (auto) 0.02 K/uL (0.00-0.20); Basophils % (auto) 0.2 %; Eosinophils # (auto) 0.03 K/uL (0.00-0.50); Eosinophils % (auto) 0.3 %; Hematocrit (blood only) 36.4 % (42.0-52.0); Hemoglobin 12.4 g/dl (14.0-18.0); Immature Granulocytes # (auto) 0.03 K/uL (0.01-0.20); Immature Granulocytes % (auto) 0.3 %; Lymphocytes # (auto) 1.66 K/uL (1.20-3.40); Lymphocytes % (auto) 17.3 %; Mean Corpuscular Hgb Conc 34.1 g/dL (32.0-36.0); Mean Corpuscular Volume 88.1 fL (80.0-100.0); Mean Platelet Volume 10.1 fL (9.4-12.4); Monocytes # (auto) 0.96 K/uL (0.11-0.59); Neutrophils # (auto) 6.87 K/uL (1.40-6.50); Neutrophils % (auto) 71.9 %; Platelet Count 190 K/uL (130-400); RDW Coefficient of Variation 11.9 % (11.5-14.5); RDW Standard Deviation 38.3 fL (36.4-46.3); Red Blood Count 4.13 M/uL (4.70-6.10); White Blood Count 9.57 K/ul (4.8-10.8)
[2024-09-22 07:17] LABS: BUN Creatinine Ratio 15.1 (10-20); Calcium 8.3 mg/dl (8.6-10.3); Creatinine Clr Calc Pharmacy 113.6 ml/min; Potassium 3.9 mmol/L (3.5-5.1)
[2024-09-22 07:35] VITALS: RESP 20
[2024-09-22] MEDS: ESCITALOPRAM OXALATE 10 MG TAB PO SCH (08:03)
--- NOTE | 2024-09-22 09:26 | Urology Progress Note ---
Date of Service September 22, 2024 Assessment & Plan (1) Renal mass: Plan: Postop day #1 status post left robotic partial nephrectomy Recovery on pace Creatinine 0.93 Hemoglobin appropriate Good urine output, minimal SVEN output Remove drains today Advance diet Ambulate Discharge pending improvement in symptoms today Admission and Anticipated Discharge Date Admission Date: September 21, 2024 Subjective Subjectively feeling quite well No issues Good urine output, Baron in place SVEN with scant output but he did have some leakage around the SVEN drainon evaluation this morning, he does not have a drain sponge around it which I think is why he has had some of the leakage Otherwise feels appropriate Pain is present but tolerable Physical Exam Physical Exam: Incisions all appropriate Abdomen soft Results & Data Vital Signs (Past 12 Hours) Vital Signs Temp Pulse Resp BP Pulse Ox O2 Del Method 09/22/24 07:34 36.6 C 56 L 20 124/75 98 Room Air 09/22/24 03:03 36.6 C 58 L 16 127/69 98 Room Air 09/21/24 22:41 36.8 C 75 16 124/80 97 Room Air PG Care Time/CCT Total # of Minutes Spent Total Time Spent with Patient: Total time spent is greater than 50% in coordination of care (as documented) at patient's floor/unit and/or counseling patient: Coding Level of Care Code None Diagnoses Renal mass N28.89
[2024-09-22] MEDS: ACETAMINOPHEN 325 MG TAB PO PRN (10:14)
[2024-09-22 11:41] VITALS: PULSE 68; TEMP 98.1; O2SAT 95
[2024-09-22 14:08] VITALS: BP 102/82
--- NOTE | 2024-09-22 15:53 | Discharge Summary ---
Date of Service September 22, 2024 Admission HPI Per Admitting Provider 44-year-old male with a left renal mass admitted for robotic partial left nephrectomy Admission Exam Per Admitting Provider incisions healing nicely minimal swelling around the fascia Constitutional well developed and well nourished Neck neck nontender Respiratory normal respiratory effort; no respiratory distress and does not use accessory muscles Cardiovascular Rate/Rhythm: regular rate Vessels: radial pulses present Extremities: no edema Gastrointestinal (Abdomen) Inspection/Auscultation: abdomen normal to inspection Percussion/Palpation: abdomen soft; abdomen nontender and no guarding Musculoskeletal Head/Neck/Chest: normocephalic and head atraumatic Extremities: extremities normal to inspection Skin no rashes and no lesions Trauma: no evidence of skin trauma Neurologic awake; not obtunded Speech / Cognition: normal speech Motor/Sensory: no tremor Psychiatric Orientation: alert and oriented x 3 Genitourinary no CVA tenderness Lymphatic no lymphadenopathy Principal Diagnosis Left renal mass Discharge Exam Constitutional no acute distress Respiratory no respiratory distress and no labored breathing Gastrointestinal (Abdomen) Incisions appropriate Neurologic moves all extremities and awake Psychiatric A+Ox3, euthymic affect Discharge Data Allergies Allergy/AdvReac Type Severity Reaction Status Date / Time No Known Allergies Allergy Verified 09/21/24 09:49 Procedures Performed Operation Date: 09/21/24 10:50 Actual Procedures p Robotic Assisted Laparoscopic Partial Nephrectomy - Left(Left) - Tino Eldridge MD Hospital Course (1) Renal mass: 44-year-old male admitted status post left robotic partial nephrectomy. Patient tolerated procedure well. No issues postoperatively. He remained afebrile and hemodynamically stable. Labs appropriate. Baron catheter removed on postop day #1. He was able to void without issue following catheter removal. Minimal SVEN drain output. SVEN drain was removed on postop day #1. Tolerated diet. Ambulated without issue. Reported minimal pain. He was subsequently discharged home on postop day #1. He was in stable condition at time of discharge. Discharge instructions were reviewed and all questions were answered. Total Time Total Time Spent Total Time Spent (In Minutes): 15 Discharge Plan Discharge Items Patient Disposition: Home - Self-Care Reason For Visit: Left Renal Mass Discharge Diagnosis: Left renal mass Condition on Discharge: Good Activity: Per Instructions section Lifting: No more than 10 pounds Bathing Comment: Ok to shower. No tub baths or soaks. Sexual Activity: Wait until after follow-up appointment Exercise/Sports: Wait until after follow-up appointment Driving/Machine Use: Do not drive if taking prescription pain medication. Non-emergency contact: Surgeon and Urologist Call non-emergency contact if: you have any medication questions, your symptoms worsen, your pain is not controlled, you have a fever, your wound has increased redness, your wound has increased drainage and your wound pain has increased Follow-up/Referrals: Tino Eldridge MD [Physician] - Parminder Florian MD [Primary Care Provider] - Diet: Regular Addtl Attending Provider Instructions: Please take all medications as prescribed and keep all follow-ups as scheduled. Please call our office at [phone] with any questions, concerns or need to reschedule appointments for any reason. We are happy to assist you. Recovering at home: We recommend having someone with you for the first few days after surgery to help care for you. It is okay to shower tomorrow. Please avoid swimming, bathing or using hot tub until incisions are well healed. Avoid driving until you are not requiring pain medication any further. Walk at least a few times a day. Increase your distance, as you feel able. Stairs in your home are okay. Please avoid strenuous or sexual activity until your follow-up. We recommend using stool softener (i.e. Colace) to prevent constipation and straining, especially the first two weeks post operatively. Call [facility] at [phone] if you experience: Chest pain or trouble breathing (call [phone] or go to the hospital). Fever of 101F or higher Symptoms of infection at incision site, including redness or swelling, warmth, or bad-smelling drainage If you are unable to urinate Pain that is not controlled with medicines Pending Studies at Discharge: Yes (pathology) Stand-Alone Forms: My [employer], Smoking Cessation Medications and DC Order Prescriptions: New oxycodone 5 mg tablet 5 mg PO Q8H PRN (Reason: pain) Qty: 5 0RF Continued escitalopram oxalate 10 mg tablet 10 mg PO QAM Discharge Orders: Discharge Order (Routine); Ordered 09/22/24 Ordered By: Mary Gonzalez Admission Data Admit Date/Time: 09/21/24 14:02 Attending Provider: Tino Eldridge Admit Provider: Tino Eldridge Primary Care Provider: Parminder Florian Other Interventions: Discharge Summary Assessment (RN) Last Done: 09/22/24 14:07 Coding Level of Care Code 35720 IN/OBS DISCH 30 MIN/LESS Diagnoses Renal mass N28.89
== END 2024-09-22 14:38 | disposition home or self-care (01) ==
LOC: ASU 09:16 → 3E 14:02 → INTOOBSV 14:02